=== PATIENT | female | born 1975 | race Two or more races ===

== ENCOUNTER 2025-06-09 20:41 | Inpatient (IN) | payer MEDICAID, OTHER ==
[~2025-06-09] VITALS: Ht 168.9 cm; Wt 94.1 kg
[2025-06-09] MEDS: VANCOMYCIN 1GM/250ML KIT 250 ML IV ONE (00:30)
--- NOTE | 2025-06-09 20:58 | ED.PDOC ---
History of Present Illness HPI Comments 50 y/o F is BIBA for c/c of unhealing left buttock wound, with associated discharge and surrounding tissue discoloration and generalized weakness. 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 Patient states on feeling weak, today, and is unable to walk as she usually does. Denial of any further acute symptoms. Chief Complaint: Wound Check Time Seen by MD: 20:50 Reviewed Notes: Nurses Notes, Medications, Allergies Allergies: Coded Allergies: NO KNOWN ALLERGIES (Unverified , 06/09/25) Information Source: Patient Mode of Arrival: Ambulatory Severity: Moderate Timing: Months Duration: Since onset Prehospital treatment: 12 Lead EKG, Accucheck, [employer] Past Medical History Past Medical History (Other): Chrohn's disease Surgical History (Other): Ileostomy All Other Systems: Reviewed and Negative (As per HPI) Physical Exam General Appearance: No Apparent Distress, Normal HEENT: Normal ENT Inspection, Pharynx Normal, TMs Normal Neck: Full Range of Motion, Non-Tender, Normal, Normal Inspection Respiratory: Chest Non-Tender, Lungs Clear, No Accessory Muscle Use, No Respiratory Distress, Normal Breath Sounds Cardiovascular: No Edema, No JVD, No Murmur, No Gallop, Normal Peripheral Pulses, Regular Rate/Rhythm Breast Exam: Deferred Gastrointestinal: LLQ (tenderness ), No Organomegaly, No Pulsatile Mass, Normal Bowel Sounds, RLQ (tenderness ), Soft, Tenderness (bilateral lower quadrants ) Genitalia: Deferred Pelvic: Deferred Rectal: Deferred Extremities: No calf tenderness, Normal capillary refill, Normal inspection, Normal range of motion, Non-tender, No pedal edema Musculoskeletal : Apperance: Normal Neurologic: Alert, brand mgr II-XII nml as Tested, No Motor Deficits, Normal Affect, Normal Mood, No Sensory Deficits Cerebellar Function: Normal Reflexes: Normal Skin: Dry, Normal Color, Warm, Other (stage 3 decubitus ulcer on the left butt ock with purulent drainage) Lymphatic: No Adenopathy Was a procedure done? Was a procedure done?: No Differential Dx Considerations may include: decubitus ulcer, nonhealing wound, dermatitis, cellulitis, sepsis, UTI, viral syndrome, among others X-Ray, Labs, Meds, VS Vital Signs Date Time Temp Pulse Resp B/P (MAP) Pulse Ox O2 Delivery O2 Flow Rate FiO2 06/10/25 00:00 86 21 98/59 (72) 100 06/09/25 23:30 98.4 91 14 101/58 (72) 100 98.4 06/09/25 23:30 91 14 100 Room Air* 0 21 06/09/25 20:45 98.3 95 16 105/48 100 98.3 06/09/25 20:41 93 Lab Test 06/09/25 22:55 06/09/25 21:17 Range/Units Lactic Acid Level 2.7 *H 3.4 *H 0.4-2.0 mmol/L White Blood Count 13.8 H 4.4-10.8 10^3/uL Red Blood Count 2.54 L 4.0-5.20 10^6/uL Hemoglobin 9.2 L 12.2-16.2 g/dL Hematocrit 27.9 L 36.0-46.0 % Mean Corpuscular Volume 109.8 H 80.0-100.0 fL Mean Corpuscular Hemoglobin 36.0 H 28.0-32.0 pg Mean Corpuscular Hemoglobin Concent 32.8 32.0-36.0 g/dL Red Cell Distribution Width 21.0 H 11.8-14.3 % Platelet Count 459 H 140-450 10^3/uL Mean Platelet Volume 6.5 L 6.9-10.8 fL Neutrophils (%) (Auto) 74.9 37.0-80.0 % Lymphocytes (%) (Auto) 18.6 10.0-50.0 % Monocytes (%) (Auto) 6.1 0.0-12.0 % Eosinophils (%) (Auto) 0.2 0.0-7.0 % Basophils (%) (Auto) 0.2 0.0-2.0 % Neutrophils # (Auto) 10.3 H 1.6-8.6 10 ^3/uL Lymphocytes # (Auto) 2.6 0.4-5.4 10 ^3/uL Monocytes # (Auto) 0.8 0-1.3 10 ^3/uL Eosinophils # (Auto) 0 0-0.8 10 ^3/uL Basophils # (Auto) 0 0-0.2 10 ^3/uL Nucleated Red Blood Cells 0.2 % Prothrombin Time 16.5 H 9.3-11.8 sec Prothrombin Time INR 1.63 H 0.9-1.15 Activated Partial Thromboplast Time 39.5 H 24.5-34.5 SEC Sodium Level 138 136-145 mmol/L Potassium Level 3.8 3.5-5.1 mmol/L Chloride Level 108 H 98-107 mmol/L Carbon Dioxide Level 20 20-31 mmol/L Anion Gap 10 5-15 Blood Urea Nitrogen 5 L 9-23 mg/dL Creatinine 0.74 0.550-1.02 mg/dL Glomerular Filtration Rate Calc 97 >90 mL/min BUN/Creatinine Ratio 6.8 L 10.0-20.0 Serum Glucose 113 H 74-106 mg/dL Calcium Level 6.9 L 8.7-10.4 mg/dL Magnesium Level 2.0 1.6-2.6 mg/dL Total Bilirubin 0.3 0.2-1.0 mg/dL Aspartate Amino Transferase (AST) 29 13-40 U/L Alanine Aminotransferase (ALT) 19 7-40 U/L Alkaline Phosphatase 128 H 46-116 U/L Total Protein 4.6 L 5.7-8.2 g/dL Albumin 1.4 L 3.2-4.8 g/dL Lipase 15 12-53 U/L Current Medications Medications (Trade) Dose Ordered Sig/Ruben Route Start Time Stop Time Status Last Admin Sodium Chloride 1,000 ml @ 1,000 mls/hr Q1H ONCE IVB 06/09/25 21:00 06/09/25 21:59 DC 06/09/25 23:30 Piperacillin Sod/ Tazobactam Sod 100 ml @ 100 mls/hr ONCE ONCE IV 06/09/25 21:00 06/09/25 21:59 DC 06/09/25 23:30 Vancomycin HCl 250 ml @ 250 mls/hr ONCE ONCE IV 06/09/25 21:00 06/09/25 21:59 DC 06/09/25 00:30 Sodium Chloride 1,000 ml @ 1,000 mls/hr Q1H ONCE IV 06/10/25 00:45 06/10/25 01:44 DC 06/10/25 01:[address] [address] Ph: [phone] DIAGNOSTIC IMAGING Diagnostic Imaging Report : [id number] Signed PATIENT: SARBJIT FORBES ACCT: [id number] UNIT: [id number] : 1975 LOC: ER ROOM / BED: / AGE / SEX: 50 / F ADM STATUS: REG ER SERVICE 49 ORDERING PHYSICIAN: MATTHEW JACKSON MD PROCEDURE(s): ABPLIV - CT AB PEL WITH IV CON ONLY REASON: lower abd pain ORDER NUMBER(s): [id number], ACCESSION NUMBER(s): [id number] Exam: CT CT AB PEL WITH IV CON ONLY History: lower abd pain COMPARISON: None Technique: Multidetector spiral CT of the abdomen and pelvis was performed from lung bases to pubic symphysis. Intravenous contrast was administered during this examination. Portal venous imaging was obtained. Axial, coronal and sagittal multiplanar reformats were performed by the technologist on a separate workstation. Radiation Dose : 1. Abdomen/Pelvis: CTDIvol 10.79mGy, DLP 630.69 mGy*cm. Findings: Lung Bases: No acute or significant lung base finding. Normal heart size. No pleural or pericardial effusion. Liver: Severe hepatic steatosis. Gallbladder and biliary Tree: Unremarkable Spleen: Unremarkable Pancreas: The pancreas is normal in appearance without focal lesions or abnormal enhancement. Adrenal Glands: Unremarkable Kidneys: No hydronephrosis. Bladder: Unremarkable Bowel: The stomach is grossly normal in appearance. Small bowel and colon are normal in caliber and distribution. Normal appendix is visualized in the right lower quadrant without findings of appendicitis. Ascites: Absent Lymphadenopathy: No mesenteric, retroperitoneal or periportal lymphadenopathy. Abdominal wall and Mesentery: Several large ventral hernias. Perimbilical stoma. No obstruction. Generalized soft tissue edema. No abscess. Vasculature: The visualized abdominal aorta is normal in size and caliber. Abdominal and pelvic vessels demonstrate normal enhancement. Pelvic Organs: Unremarkable Musculoskeletal: No aggressive focal bony lesions, acute fractures or dislocation. Diffuse left gluteal skin thickening and soft tissue edema with multiple locules of gas within the peripheral dermal layer. IMPRESSION: Multiple locules of gas and severe skin thickening with mild subcutaneous inflammatory changes in the left gluteal region. No acute abdominal or pelvic finding. Generalized soft tissue edema Severe hepatic steatosis. Radiation optimization: All CT scans at this facility use at least one of these dose optimization techniques: automated exposure control mA and/or kV adj ustment per patient size (includes targeted exams where dose is matched to clinical indication) or iterative reconstruction. ATED BY: ROSS GREEN MD DICTATED DATE/TIME: 06/10/25148 SIGNED BY: ROSS GREEN MD SIGNED DATE/TIME: 06/10/25148 CC: Time of 1ST Reevaluation: 21:20 Reevaluation 1ST: Unchanged Patient Education/Counseling: Treatment, Other (need for admission ) Family Education/Counseling: No Family Present SEPSIS Sepsis Screen Physician Orders Electrocardigram (06/09/25 20:42) Urinalysis (06/09/25 20:50) Ct Ab Pel With Iv Con Only (06/09/25 20:50) Blood Culture (06/09/25 20:50) * Wound Consult (06/10/25 ) Wound Culture W/ Gs (06/10/25 00:00) Vital Signs Date Time Temp Pulse Resp B/P (MAP) Pulse Ox O2 Delivery O2 Flow Rate FiO2 06/10/25 00:00 86 21 98/59 (72) 100 06/09/25 23:30 98.4 91 14 101/58 (72) 100 98.4 06/09/25 23:30 91 14 100 Room Air* 0 21 06/09/25 20:45 98.3 95 16 105/48 100 98.3 06/09/25 20:41 93 Laboratory Tests Test 06/09/25 21:17 06/09/25 22:55 Lactic Acid Level 3.4 mmol/L (0.4-2.0) *H 2.7 mmol/L (0.4-2.0) *H White Blood Count 13.8 10^3/uL (4.4-10.8) H Medications Medications Dose Ordered Sig/Ruben Route Start Time Stop Time Status Last Admin Dose Admin Piperacillin Sod/ Tazobactam Sod 100 ml @ 100 mls/hr ONCE ONCE IV 06/09/25 21:00 06/09/25 21:59 DC 06/09/25 23:30 Sodium Chloride 1,000 ml @ 1,000 mls/hr Q1H ONCE IV 06/10/25 00:45 06/10/25 01:44 DC 06/10/25 01:00 Sodium Chloride 1,000 ml @ 1,000 mls/hr Q1H ONCE IVB 06/09/25 21:00 06/09/25 21:59 DC 06/09/25 23:30 Vancomycin HCl 250 ml @ 250 mls/hr ONCE ONCE IV 06/09/25 21:00 06/09/25 21:59 DC 06/09/25 00:30 Departure 1 Departure Time of Disposition: 02:12 Impression: Primary Impression: Decubitus ulcer Additional Impression: Cellulitis of left buttock Disposition: ADMITTED INPATIENT Condition: Guarded Discharged With: Self Comments 50-year-old female states she has been bed-bound for the last few months and now has developed a decubitus ulcer on her left buttock and it has become deep and cellulitic. On lab review white blood cell count elevated at 13.8. Anemia with H&H of 9 and 28. Initial lactate is elevated at 3.4. It improved to 2.7 on re- evaluation. CT of the abdomen and pelvis shows inflammation of the soft tissue of the left buttock. Patient was given IV fluids and IV Zosyn and vancomycin antibiotics. Patient will need to be admitted for supportive care and further workup. Critical Care Note Critical Care Time?: No Stability Stability form required: No Heart Score Heart Score: Heart Score Response (Comments) Value History N/A 0 EKG N/A 0 Age N/A 0 Risk Factors N/A 0 Troponin N/A 0 Total 0 I personally scribed for MATTHEW JACKSON MD ([email or web address]) on 06/09/25 at 20:58. Electronically submitted by Earl Cui [email or web address]). I personally scribed for MATTHEW JACKSON MD ([email or web address]) on 06/10/25 at 02:11. El ectronically submitted by Earl Cui [email or web address]). MATTHEW JACKSON MD Jun 09, 2025 20:58
[2025-06-09 21:42] LABS: Hematocrit 27.9 % (36.0-46.0); Hemoglobin 9.2 g/dL (12.2-16.2); Mean Corpuscular Hemoglobin 36.0 pg (28.0-32.0); Mean Corpuscular Volume 109.8 fL (80.0-100.0); Nucleated Red Blood Cells % 0.2 %
[2025-06-09 22:02] LABS: INR 1.63 (0.9-1.15); Partial Thromboplastin Time 39.5 SEC (24.5-34.5); Prothrombin Time 16.5 sec (9.3-11.8)
[2025-06-09] MEDS: IOHEXOL 300 MG/ML 100ML BOTTLE IJ ONE (22:07)
[2025-06-09 22:23] LABS: Lactic Acid w/Reflex 3.4 mmol/L (0.4-2.0)
[2025-06-09 22:42] LABS: Alanine Aminotransferase 19 U/L (7-40); Albumin 1.4 g/dL (3.2-4.8); Alkaline Phosphatase 128 U/L (46-116); Anion Gap 10 (5-15); BUN/Creatinine Ratio 6.8 (10.0-20.0); Bilirubin, Total 0.3 mg/dL (0.2-1.0); Blood Urea Nitrogen 5 mg/dL (9-23); Calcium 6.9 mg/dL (8.7-10.4); Carbon Dioxide 20 mmol/L (20-31); Chloride 108 mmol/L (98-107); Glucose 113 mg/dL (74-106); Lipase 15 U/L (12-53); Magnesium 2.0 mg/dL (1.6-2.6); Potassium 3.8 mmol/L (3.5-5.1); Sodium 138 mmol/L (136-145); Total Protein 4.6 g/dL (5.7-8.2)
[2025-06-09 23:30] VITALS: PULSE 91; RESP 14; O2SAT 100
[2025-06-09] MEDS: SODIUM CHLORIDE 0.9% 1,000 ML IVB ONE (23:30)
[2025-06-09] MEDS: PIPERACILLIN-TAZOB 3.375GM 100 ML IV ONE (23:30)
[2025-06-10] VITALS (7 sets, daily range): BP systolic 86–98; BP diastolic 40–65; PULSE 77–91; RESP 16–20; TEMP 97.1–97.9; O2SAT 95–99
[2025-06-10] MEDS: SODIUM CHLORIDE 0.9% 1,000 ML IV ONE ×2 (01:00→02:30)
--- NOTE | 2025-06-10 01:52 | DVH ---
Exam: CT CT AB PEL WITH IV CON ONLY History: lower abd pain COMPARISON: None Technique: Multidetector spiral CT of the abdomen and pelvis was performed from lung bases to pubic s ymphysis. Intravenous contrast was administered during this examination. Portal venous imaging was o btained. Axial, coronal and sagittal multiplanar reformats were performed by the technologist on a [employer] workstation. Radiation Dose : 1. Abdomen/Pelvis: CTDIvol 10.79mGy, DLP 630.69 mGy*cm. Findings: Lung Bases: No acute or significant lung base finding. Normal heart size. No pleural or pericardial effusion. Liver: Severe hepatic steatosis. Gallbladder and biliary Tree: Unremarkable Spleen: Unremarkable Pancreas: The pancreas is normal in appearance without focal lesions or abnormal enhancement. Adrenal Glands: Unremarkable Kidneys: No hydronephrosis. Bladder: Unremarkable Bowel: The stomach is grossly normal in appearance. Small bowel and colon are normal in caliber and d istribution. Normal appendix is visualized in the right lower quadrant without findings of appendicit is. Ascites: Absent Lymphadenopathy: No mesenteric, retroperitoneal or periportal lymphadenopathy. Abdominal wall and Mesentery: Several large ventral hernias. Perimbilical stoma. No obstruction. Gene ralized soft tissue edema. No abscess. Vasculature: The visualized abdominal aorta is normal in size and caliber. Abdominal and pelvic vess els demonstrate normal enhancement. Pelvic Organs: Unremarkable Musculoskeletal: No aggressive focal bony lesions, acute fractures or dislocation. Diffuse left gluteal skin thickening and soft tissue edema with multiple locules of gas within the pe ripheral dermal layer. IMPRESSION: Multiple locules of gas and severe skin thickening with mild subcutaneous inflammatory changes in the left gluteal region. No acute abdominal or pelvic finding. Generalized soft tissue edema Severe hepatic steatosis. Radiation optimization: All CT scans at this facility use at least one of these dose optimization baldemar hniques: automated exposure control mA and/or kV adjustment per patient size (includes targeted exam s where dose is matched to clinical indication) or iterative reconstruction.
[2025-06-10] MEDS ORDERED: VANCOMYCIN PER PHARMACY 0 MG IV SCH (02:30)
[2025-06-10] MEDS: SODIUM CHLORIDE 0.9% 1,000 ML IV SCH (02:30)
[2025-06-10] MEDS ORDERED: MORPHINE SULFATE INJ 2 MG/ml SYRG IV PRN (02:30)
[2025-06-10 04:54] LABS: Hematocrit 24.6 % (36.0-46.0); Nucleated Red Blood Cells % 0.1 %
[2025-06-10 04:56] LABS: Hemoglobin 8.1 g/dL (12.2-16.2); Mean Corpuscular Hemoglobin 36.3 pg (28.0-32.0); Mean Corpuscular Volume 110.9 fL (80.0-100.0)
[2025-06-10 05:02] LABS: Alanine Aminotransferase 18 U/L (7-40); Alkaline Phosphatase 107 U/L (46-116); Anion Gap 10 (5-15); Carbon Dioxide 20 mmol/L (20-31); Glucose 103 mg/dL (74-106); Magnesium 1.7 mg/dL (1.6-2.6); Sodium 139 mmol/L (136-145)
[2025-06-10 05:03] LABS: BUN/Creatinine Ratio 7.6 (10.0-20.0); Blood Urea Nitrogen < 5 mg/dL (9-23); Calcium 6.4 mg/dL (8.7-10.4); Chloride 109 mmol/L (98-107); Potassium 3.2 mmol/L (3.5-5.1); Total Protein 4.1 g/dL (5.7-8.2)
[2025-06-10 05:04] LABS: Albumin 1.3 g/dL (3.2-4.8); Bilirubin, Total 0.4 mg/dL (0.2-1.0)
[2025-06-10 05:15] LABS: Triglycerides 118 mg/dL (< 150)
[2025-06-10 05:17] LABS: Cholesterol < 50.0 mg/dL (< 200)
[2025-06-10 05:20] LABS: HDL Cholesterol < 5 mg/dL (40-59)
[2025-06-10] MEDS: PIPERACILLIN-TAZOB 3.375GM 100 ML IV SCH (05:46)
--- NOTE | 2025-06-10 06:32 | DVHHPRES ---
History of Present Illness Resident Creating Document: CALEB FOFANA History of Present Illness Cara Bertrand is a 50-year-old female patient who presents to ED due to progressive generalized weakness, diffuse abdominal pain, and worsening lower back wound which has been occurring for the previous month before her admission patient also reports decreased food intake with an unintentional weight loss of 120 lb since December 2024. She also complains of abdominal mass pain next to her colostomy bag. Patient has history of Crohn's disease and ulcerative colitis complicated with enterocutaneous fistulas. Patient denies any other associated symptoms, including fever, chills, nausea, vomiting and increased output of colostomy bag. Past medical history: Crohn's disease/ulcerative colitis complicated with enterocutaneous fistulas status post multiple surgeries (colectomy, fistulectomy, wound debridement and finally colostomy bag), per patient she has not had any follow up for the past seven years and is off all Crohn's disease and ulcerative colitis medication (previously she was on Humira and multiple other biological treatments), umbilical hernia, nonhealing lower back wound. Benign ovarian mass status post unilateral salpingo-oophorectomy. Surgical history: 20 years ago presented colectomy, fistulectomy, wound debr idement and colostomy bag. Unilateral salpingo oophorectomy Family history: Mother had breast cancer and grandmother had Crohn's disease Social history: Lives in [place] with friends (next of kin is daughter). Current smoker (approximately 20 pack-year history of smoking). Denies alcohol and other drug abuse Allergies: Remicade, sweet potatoes Home medication: Denies (has not been on any medication for Crohn's disease for the past seven years) Patient seen and examined at bedside. Currently has no new complaints resides generalized weakness, foul-smelling lower back wound and abdominal pain. Past Medical History Per HPI Past Surgical History Per HPI Family History Per HPI Past Social History Per HPI Review of Systems Review of Systems Per HPI Allergies: Coded Allergies: NO KNOWN ALLERGIES (Unverified , 06/09/25) Medications Current Medications Medications Dose Ordered Sig/Ruben Route Start Time Stop Time Status Last Admin Dose Admin Morphine Sulfate 2 mg Q4HPRN PRN IV 06/10/25 02:30 Enoxaparin Sodium 40 mg DAILY SC 06/10/25 10:00 Piperacillin Sod/ Tazobactam Sod 100 ml @ 25 mls/hr Q8HR IV 06/10/25 06:00 06/10/25 05:46 25 MLS/HR Vancomycin HCl 0 ml @ 0 mls/hr UD IV 06/10/25 02:30 UNV Sodium Chloride 1,000 ml @ 100 mls/hr Q10H IV 06/10/25 02:30 Exam Vital Signs Vital Signs Date Time Temp Pulse Resp B/P (MAP) Pulse Ox O2 Delivery O2 Flow Rate FiO2 06/10/25 05:30 97.8 84 18 98/65 (76) 99 97.8 06/09/25 23:30 Room Air* 0 21 Exam Patient lying in bed, in no acute distress General: Lucid, unkempt, afebrile, mucosae are moist Cardiovascular: Normal S1 and S2. No murmurs, gallops or rubs Respiratory: Normal ventilation mechanics. Clear lung sounds on auscultation Abdomen: Soft, tenderness in pericolostomy region, rest of abdomen nontender, no organomegaly, normal bowel sounds, presents colostomy bag full of brown feces MSK/skin: Mobilizes 4 limbs. Skin is dry and warm, lower back wound predomin antly in intergluteal region with multiple fistula entry with foul-smelling greenish and brownish discharge. Neurological: Oriented in 3 spheres. No motor no sensitive deficits. Pupils are isocoric and reactive Labs/Xrays Labs Test 06/10/25 04:09 06/09/25 21:17 Range/Units White Blood Count 12.4 H 4.4-10.8 10^3/uL Red Blood Count 2.22 L 4.0-5.20 10^6/uL Hemoglobin 8.1 L 12.2-16.2 g/dL Hematocrit 24.6 #L 36.0-46.0 % Mean Corpuscular Volume 110.9 H 80.0-100.0 fL Mean Corpuscular Hemoglobin 36.3 H 28.0-32.0 pg Mean Corpuscular Hemoglobin Concent 32.8 32.0-36.0 g/dL Red Cell Distribution Width 20.6 H 11.8-14.3 % Platelet Count 358 140-450 10^3/uL Mean Platelet Volume 6.6 L 6.9-10.8 fL Neutrophils (%) (Auto) 76.2 37.0-80.0 % Lymphocytes (%) (Auto) 16.3 10.0-50.0 % Monocytes (%) (Auto) 7.0 0.0-12.0 % Eosinophils (%) (Auto) 0.3 0.0-7.0 % Basophils (%) (Auto) 0.2 0.0-2.0 % Neutrophils # (Auto) 9.4 H 1.6-8.6 10 ^3/uL Lymphocytes # (Auto) 2.0 0.4-5.4 10 ^3/uL Monocytes # (Auto) 0.9 0-1.3 10 ^3/uL Eosinophils # (Auto) 0 0-0.8 10 ^3/uL Basophils # (Auto) 0 0-0.2 10 ^3/uL Nucleated Red Blood Cells 0.1 % Sodium Level 139 136-145 mmol/L Potassium Level 3.2 L 3.5-5.1 mmol/L Chloride Level 109 H 98-107 mmol/L Carbon Dioxide Level 20 20-31 mmol/L Anion Gap 10 5-15 Blood Urea Nitrogen < 5 L 9-23 mg/dL Creatinine 0.66 0.550-1.02 mg/dL Glomerular Filtration Rate Calc 105 >90 mL/min BUN/Creatinine Ratio 7.6 L 10.0-20.0 Serum Glucose 103 74-106 mg/dL Lactic Acid Level 1.9 0.4-2.0 mmol/L Calcium Level 6.4 L 8.7-10.4 mg/dL Phosphorus Level 2.4 2.4-5.1 mg/dL Magnesium Level 1.7 1.6-2.6 mg/dL Total Bilirubin 0.4 0.2-1.0 mg/dL Aspartate Amino Transferase (AST) 23 13-40 U/L Alanine Aminotransferase (ALT) 18 7-40 U/L Alkaline Phosphatase 107 46-116 U/L B-Type Natriuretic Peptide 55.05 0-100 pg/mL Total Protein 4.1 L 5.7-8.2 g/dL Albumin 1.3 L 3.2-4.8 g/dL Triglycerides Level 118 < 150 mg/dL Cholesterol Level < 50.0 < 200 mg/dL LDL Cholesterol 19 < 100 mg/dL HDL Cholesterol < 5 L 40-59 mg/dL Prothrombin Time 16.5 H 9.3-11.8 sec Prothrombin Time INR 1.63 H 0.9-1.15 Activated Partial Thromboplast Time 39.5 H 24.5-34.5 SEC Hemoglobin A1c 4.0 <5.7 % A1C Lipase 15 12-53 U/L Vitamin B12 Level 1723 H 211-911 pg/mL Vitamin D 25-Hydroxy 40.1 30.0-100 ng/mL Thyroid Stimulating Hormone (TSH) 8.35 H 0.55-4.78 uIU/mL SEPSIS Sepsis Screen Date sepsis recognized/suspect: Jun 09, 2025 Time Sepsis recognized/suspect: 2352 Recent Procedure: No On Antibiotic Therapy: No Respiratory Rate >20: No Heart Rate >90: Yes Temp<36 C (96.8 F) or >38.3 C: No SBP <90 or MAP <65 mmHG: No New Acute Mental Status Change: No Is the patient on CPAP, BIPAP,: No Physician Orders * Wound Consult (06/10/25 ) Wound Culture W/ Gs (06/10/25 00:00) Admit (06/10/25 02:28) Code Status (06/10/25 02:28) Npo (Nothing By Mouth) Diet (06/10/25 Breakfast) Morphine Sulfate Injection (06/10/25 02:30) Enoxaparin Sodium (Lovenox) (06/10/25 10:00) Oxygen By Nasal Cannula (06/10/25 02:28) Stat Ekg For Chest Pain (06/10/25 02:28) Notify Md Of Changes From Base (06/10/25 02:28) Manufacturing Project Engineer For 24 Hours (06/10/25 02:28) Emergency Dysrhythmia Protocol (06/10/25 02:28) Rhythm Strips Once Every Shift (06/10/25 02:28) Piperacillin-Tazob 3.375gm (Zosyn 3.375g (06/10/25 06:00) Vancomycin Per Pharmacy (06/10/25 02:30) Sodium Chloride 0.9% (06/10/25 02:30) Sodium Chloride 0.9% (06/10/25 02:30) Urine Bacterial Culture (06/10/25 02:34) Drug Screen (06/10/25 02:34) * Training Mgr Consult (06/10/25 05:25) * Surgical Consult (06/10/25 05:40) Vital Signs Date Time Temp Pulse Resp B/P (MAP) Pulse Ox O2 Delivery O2 Flow Rate FiO2 06/10/25 05:30 97.8 84 18 98/65 (76) 99 97.8 06/10/25 03:00 91 14 102/52 (69) 100 06/10/25 02:00 83 11 93/56 (68) 100 06/10/25 00:00 86 21 98/59 (72) 100 06/09/25 23:30 98.4 91 14 101/58 (72) 100 98.4 06/09/25 23:30 91 14 100 Room Air* 0 21 Laboratory Tests Test 06/09/25 21:17 06/09/25 22:55 06/10/25 04:09 Lactic Acid Level 3.4 mmol/L (0.4-2.0) *H 2.7 mmol/L (0.4-2.0) *H 1.9 mmol/L (0.4-2.0) White Blood Count 13.8 10^3/uL (4.4-10.8) H 12.4 10^3/uL (4.4-10.8) H Medications Medications Dose Ordered Sig/Ruben Route Start Time Stop Time Status Last Admin Dose Admin Piperacillin Sod/ Tazobactam Sod 100 ml @ 25 mls/hr Q8HR IV 06/10/25 06:00 06/10/25 05:46 25 MLS/HR Piperacillin Sod/ Tazobactam Sod 100 ml @ 100 mls/hr ONCE ONCE IV 06/09/25 21:00 06/09/25 21:59 DC 06/09/25 23:30 100 MLS/HR Sodium Chloride 1,000 ml @ 100 mls/hr Q10H ONCE IV 06/10/25 02:30 06/10/25 12:29 06/10/25 02:30 100 MLS/HR Sodium Chloride 1,000 ml @ 1,000 mls/hr Q1H ONCE IV 06/10/25 00:45 06/10/25 01:44 DC 06/10/25 01:00 1,000 MLS/HR Sodium Chloride 1,000 ml @ 1,000 mls/hr Q1H ONCE IVB 06/09/25 21:00 06/09/25 21:59 DC 06/09/25 23:30 1,000 MLS/HR Vancomycin HCl 250 ml @ 250 mls/hr ONCE ONCE IV 06/09/25 21:00 06/09/25 21:59 DC 06/09/25 00:30 250 MLS/HR Assessment/Plan Assessment/Plan ASSESSMENT Sepsis secondary to nonhealing extensive gluteal wound Extensive gluteal wound secondary to enterocutaneous fistulas Cellulitis of gluteal region Multiple abscesses in gluteal region Questionable Crohn's disease/ulcerative colitis flare-up Hyperlacticacidemia Eventration with no incarceration Crohn's disease/ulcerative colitis status post colectomy Severe malnutrition (albumin 1.4) Severe hepatic steatosis Noncompliance Normocytic anemia PLAN Obtain pancultures (blood, urine, sputum and wound) Currently under empiric IV antibiotic (vancomycin and Zosyn) operations and maintenance specialist consulted Wound care on board Consulted GI specialist (evaluate need of IV steroids, and also requires follow up as outpatient) Patient is on DVT prophylaxis with enoxaparin Goals of care discussed with patient for over 18 minutes: Full code status Discussed plan with Dr. Kang, patient and nurses: Currently under empiric IV antibiotic, requires IV fluid resuscitation. Consulted surgical and GI specialist. Wound Care on board. Patient has poor prognosis Plan discussed with: Patient, Other (Nurses) My Orders Orders - CALEB FOFANA RESIDENT Procedure Category Date Status Time Admit ADMIT 06/10/25 Transmitted 02:28 Code Status CODE 06/10/25 Transmitted 02:28 Npo (Nothing By DIET 06/10/25 Transmitted Mouth) Diet Breakfast Morphine Sulfate PHA 06/10/25 In Process Injection 02:30 Enoxaparin Sodium PHA 06/10/25 In Process (Lovenox) 10:00 Oxygen By Nasal RT 06/10/25 Transmitted Cannula 02:28 Stat Ekg For Chest [facility]EE[facility]E 06/10/25 In Process Pain 02:28 Notify Of Changes [facility] 06/10/25 In Process From Base 02:28 Manufacturing Project Engineer For LEELEE 06/10/25 In Process 24 Hours 02:28 Emergency Dysrhythmia [facility] 06/10/25 In Process Protocol 02:28 Rhythm Strips Once LEELEE 06/10/25 In Process Every Shift 02:28 Piperacillin-Tazob PHA 06/10/25 In Process 3.375gm (Zosyn 3.375g 06:00 Vancomycin Per PHA 06/10/25 Pending Pharmacy 02:30 Sodium Chloride 0.9% PHA 06/10/25 In Process 02:30 Sodium Chloride 0.9% PHA 06/10/25 In Process 02:30 Urine Bacterial [place] 06/10/25 Logged Culture 02:34 Drug Screen LAB 06/10/25 Logged 02:34 * Training Mgr CONS 06/10/25 Transmitted Consult 05:25 * Surgical Consult CONS 06/10/25 Transmitted 05:40 Date of Service: Jun 10, 2025 Billing Provider: FANTASMA KANG MD Common Visit Codes: 35207-[id number] INP/OBS CARE (HIGH) Secondary Visit Codes: [id number] CARE PLAN 30 MINUTES CALEB FOFANA RESIDENT Jun 10, 2025 06:32
--- NOTE | 2025-06-10 09:12 | DVHINCON2 ---
Consultation - Surgical Date Seen: Jun 10, 2025 Referring Physician Reason for Consultation Left gluteal cellulitis/abscess History of Present Illness History of Present Illness Mrs. Bertrand is a 50-year-old female who presented to the ED due to generalized weakness and malaise. I was consulted due to gluteal area wound/abscess. Patient states that this has been going on for over 3 months and is getting worse. She has a history of Crohn's disease not under any treatment, with a past history of total proctocolectomy with end ileostomy. In the past she had fistulas due to Crohn's, perianal and multiple, requiring extensive debridement and flap. Past Medical/Surgical History Past Medical/Surgical History PMH Crohn's disease PSH total proctocolectomy with end ileostomy, extensive gluteal debridement with flap Allergies and medications Allergies: Coded Allergies: NO KNOWN ALLERGIES (Unverified , 06/09/25) Home Meds No Active Prescriptions or Reported Meds Review of systems Review of Systems: Deferred Examination Vital signs Vital Signs Date Time Temp Pulse Resp B/P (MAP) Pulse Ox O2 Delivery O2 Flow Rate FiO2 06/10/25 08:47 97.9 78 20 88/50 (63) 95 97.9 06/09/25 23:30 Room Air* 0 21 Medications Current Medications Medications (Trade) Dose Ordered Sig/Ruben Route PRN Reason Start Time Stop Time Status Last Admin Morphine Sulfate 2 mg Q4HPRN PRN IV SEVERE PAIN (7-10 PAIN SCALE) 06/10/25 02:30 Enoxaparin Sodium (Lovenox) 40 mg DAILY SC 06/10/25 10:00 Piperacillin Sod/ Tazobactam Sod 100 ml @ 25 mls/hr Q8HR IV 06/10/25 06:00 06/10/25 05:46 Vancomycin HCl 0 ml @ 0 mls/hr UD IV 06/10/25 02:30 Sodium Chloride 1,000 ml @ 100 mls/hr Q10H IV 06/10/25 02:30 Laboratory Labs Test 06/10/25 04:09 06/09/25 21:17 Range/Units White Blood Count 12.4 H 4.4-10.8 10^3/uL Red Blood Count 2.22 L 4.0-5.20 10^6/uL Hemoglobin 8.1 L 12.2-16.2 g/dL Hematocrit 24.6 #L 36.0-46.0 % Mean Corpuscular Volume 110.9 H 80.0-100.0 fL Mean Corpuscular Hemoglobin 36.3 H 28.0-32.0 pg Mean Corpuscular Hemoglobin Concent 32.8 32.0-36.0 g/dL Red Cell Distribution Width 20.6 H 11.8-14.3 % Platelet Count 358 140-450 10^3/uL Mean Platelet Volume 6.6 L 6.9-10.8 fL Neutrophils (%) (Auto) 76.2 37.0-80.0 % Lymphocytes (%) (Auto) 16.3 10.0-50.0 % Monocytes (%) (Auto) 7.0 0.0-12.0 % Eosinophils (%) (Auto) 0.3 0.0-7.0 % Basophils (%) (Auto) 0.2 0.0-2.0 % Neutrophils # (Auto) 9.4 H 1.6-8.6 10 ^3/uL Lymphocytes # (Auto) 2.0 0.4-5.4 10 ^3/uL Monocytes # (Auto) 0.9 0-1.3 10 ^3/uL Eosinophils # (Auto) 0 0-0.8 10 ^3/uL Basophils # (Auto) 0 0-0.2 10 ^3/uL Nucleated Red Blood Cells 0.1 % Sodium Level 139 136-145 mmol/L Potassium Level 3.2 L 3.5-5.1 mmol/L Chloride Level 109 H 98-107 mmol/L Carbon Dioxide Level 20 20-31 mmol/L Anion Gap 10 5-15 Blood Urea Nitrogen < 5 L 9-23 mg/dL Creatinine 0.66 0.550-1.02 mg/dL Glomerular Filtration Rate Calc 105 >90 mL/min BUN/Creatinine Ratio 7.6 L 10.0-20.0 Serum Glucose 103 74-106 mg/dL Lactic Acid Level 1.9 0.4-2.0 mmol/L Calcium Level 6.4 L 8.7-10.4 mg/dL Phosphorus Level 2.4 2.4-5.1 mg/dL Magnesium Level 1.7 1.6-2.6 mg/dL Total Bilirubin 0.4 0.2-1.0 mg/dL Aspartate Amino Transferase (AST) 23 13-40 U/L Alanine Aminotransferase (ALT) 18 7-40 U/L Alkaline Phosphatase 107 46-116 U/L B-Type Natriuretic Peptide 55.05 0-100 pg/mL Total Protein 4.1 L 5.7-8.2 g/dL Albumin 1.3 L 3.2-4.8 g/dL Triglycerides Level 118 < 150 mg/dL Cholesterol Level < 50.0 < 200 mg/dL LDL Cholesterol 19 < 100 mg/dL HDL Cholesterol < 5 L 40-59 mg/dL Prothrombin Time 16.5 H 9.3-11.8 sec Prothrombin Time INR 1.63 H 0.9-1.15 Activated Partial Thromboplast Time 39.5 H 24.5-34.5 SEC Hemoglobin A1c 4.0 <5.7 % A1C Lipase 15 12-53 U/L Vitamin B12 Level 1723 H 211-911 pg/mL Vitamin D 25-Hydroxy 40.1 30.0-100 ng/mL Thyroid Stimulating Hormone (TSH) 8.35 H 0.55-4.78 uIU/mL Examination: GENERAL:Normal, SKIN:Abnormal (Entire left gluteal area with erythema induration, multiple small apertures draining pus actively, tender, no crepitus. Right buttock with previous skin flap site erythema induration, and active pus tracked drainage, area is approximately 20 cm x 18 cm. Areas approximately 12 cm x 12 cm) Problem List/Assessment/Plan Problems: (1) Carbuncle and furuncle of buttock Assessment and Plan Mrs. Bertrand is a 50-year-old female with a active history of Crohn's disease, not manage and who presents with entire left buttock induration, cellulitis and active pus drainage. She has a same findings on the right buttock but smaller area. Given her history of Crohn's disease and the extensiveness of the involvement I recommend transfer to higher level care. 1. Recommend transferred to higher level care: We will need extensive debridement and plastics reconstruction 2. Continue with IV antibiotics 3. I will sign off please call with any questions or concerns Plan discussed with Plan discussed with: Patient Visit Coding Surgery Date of Service if different f: Jun 10, 2025 Billing Provider: RYLEE BOLTON MD Surgery Visit Codes: [id number] - INP CONSULT <110 MIN RYLEE BOLTON MD Jun 10, 2025 09:12
[2025-06-10] MEDS: ENOXAPARIN SOD 40 MG/0.4 ML SYRINGE SC SCH (10:00)
[2025-06-10] MEDS: VANCOMYCIN 1.5GM/250ML 250 ML IV SCH (11:43)
[2025-06-10 12:55] LABS: Urine Protein, UAD 1+ (Negative); Urine WBC Clumps PRESENT /hpf (None Seen)
[2025-06-10 14:41] LABS: Amphetamine Screen, Urine Neg (NEGATIVE); Barbiturate Scree,Urine Neg (NEGATIVE); Benzodiazephine Screen, Urine Neg (NEGATIVE); Cannabinoid Screen, Urine Neg (NEGATIVE); Cocaine Screen, Urine Neg (NEGATIVE); Opiate Scree,Urine Neg (NEGATIVE); Phencyclidine Screen, Urine Neg (NEGATIVE)
--- NOTE | 2025-06-10 14:51 | DVHINCON2 ---
GI Consult Consult Note GI consult note Date of Consultation: 06/10/2025 Chief Complaint: ?Crohn's flare-up Referring Physician:Dr Lyles H&P: 50-year-old female admitted with complains of generalized weakness. Also complaining of diffuse abdominal pain, and pain in her gluteal area due to wound. Patient has history of Crohn's symptoms started when she was 17 years ago, diagnosed when she was 22 years ago, patient is status post. Colectomy also had perianal flap surgery about 7-8 years ago. Patient was treated with Humira in the past for Crohn's and ulcerative colitis. But has stopped all these medications at this time Past Medical History: Crohn's disease/ulcerative colitis complicated with enterocutaneous fistulas status post multiple surgeries (colectomy, fistulectomy, wound debridement and finally colostomy bag), per patient she has not had any follow up for the past seven years and is off all Crohn's disease and ulcerative colitis medication (previously she was on Humira and multiple other biological treatments), umbilical hernia, nonhealing lower back wound. Benign ovarian mass status post unilateral salpingo-oophorectomy. Past Surgical History: 20 years ago presented colectomy, fistulectomy, wound debridement and colostomy bag. Unilateral salpingo oophorectomy Social History: NO smoking, drinking ETOH and use of illegal drugs. Family History: Mother and grandmother diagnosed with Crohn's disease Review of Systems: Constitutional: no fever, chill, weight loss HEENT: no eye pain, no hearing loss, no oral lesion, no scleral icterus Heart: no chest pain, no chest pressure Lung: no cough, no dyspnea with exertion Abdomen: see HPI : no pain with urination, normal appearing urine Musculoskeletal: Worsening lower back pain Physical exam: General: NAD, AAOX3 Chest: lung rajput clear to auscultation Heart: RRR, no murmur Abdomen: non-distended, no tenderness to palpation, +BS Labs: Labs Test 06/10/25 04:09 06/09/25 21:17 06/09/25 09:30 06/09/25 09:20 Range/Units White Blood Count 12.4 H 4.4-10.8 10^3/uL Red Blood Count 2.22 L 4.0-5.20 10^6/uL Hemoglobin 8.1 L 12.2-16.2 g/dL Hematocrit 24.6 #L 36.0-46.0 % Mean Corpuscular Volume 110.9 H 80.0-100.0 fL Mean Corpuscular Hemoglobin 36.3 H 28.0-32.0 pg Mean Corpuscular Hemoglobin Concent 32.8 32.0-36.0 g/dL Red Cell Distribution Width 20.6 H 11.8-14.3 % Platelet Count 358 140-450 10^3/uL Mean Platelet Volume 6.6 L 6.9-10.8 fL Neutrophils (%) (Auto) 76.2 37.0-80.0 % Lymphocytes (%) (Auto) 16.3 10.0-50.0 % Monocytes (%) (Auto) 7.0 0.0-12.0 % Eosinophils (%) (Auto) 0.3 0.0-7.0 % Basophils (%) (Auto) 0.2 0.0-2.0 % Neutrophils # (Auto) 9.4 H 1.6-8.6 10 ^3/uL Lymphocytes # (Auto) 2.0 0.4-5.4 10 ^3/uL Monocytes # (Auto) 0.9 0-1.3 10 ^3/uL Eosinophils # (Auto) 0 0-0.8 10 ^3/uL Basophils # (Auto) 0 0-0.2 10 ^3/uL Nucleated Red Blood Cells 0.1 % Sodium Level 139 136-145 mmol/L Potassium Level 3.2 L 3.5-5.1 mmol/L Chloride Level 109 H 98-107 mmol/L Carbon Dioxide Level 20 20-31 mmol/L Anion Gap 10 5-15 Blood Urea Nitrogen < 5 L 9-23 mg/dL Creatinine 0.66 0.550-1.02 mg/dL Glomerular Filtration Rate Calc 105 >90 mL/min BUN/Creatinine Ratio 7.6 L 10.0-20.0 Serum Glucose 103 74-106 mg/dL Lactic Acid Level 1.9 0.4-2.0 mmol/L Calcium Level 6.4 L 8.7-10.4 mg/dL Phosphorus Level 2.4 2.4-5.1 mg/dL Magnesium Level 1.7 1.6-2.6 mg/dL Total Bilirubin 0.4 0.2-1.0 mg/dL Aspartate Amino Transferase (AST) 23 13-40 U/L Alanine Aminotransferase (ALT) 18 7-40 U/L Alkaline Phosphatase 107 46-116 U/L B-Type Natriuretic Peptide 55.05 0-100 pg/mL Total Protein 4.1 L 5.7-8.2 g/dL Albumin 1.3 L 3.2-4.8 g/dL Triglycerides Level 118 < 150 mg/dL Cholesterol Level < 50.0 < 200 mg/dL LDL Cholesterol 19 < 100 mg/dL HDL Cholesterol < 5 L 40-59 mg/dL Prothrombin Time 16.5 H 9.3-11.8 sec Prothrombin Time INR 1.63 H 0.9-1.15 Activated Partial Thromboplast Time 39.5 H 24.5-34.5 SEC Hemoglobin A1c 4.0 <5.7 % A1C Lipase 15 12-53 U/L Vitamin B12 Level 1723 H 211-911 pg/mL Vitamin D 25-Hydroxy 40.1 30.0-100 ng/mL Thyroid Stimulating Hormone (TSH) 8.35 H 0.55-4.78 uIU/mL Urine Opiates Screen Neg NEGATIVE Urine Fentanyl Screen Neg NEGATIVE Urine Barbiturates Screen Neg NEGATIVE Urine Phencyclidine Screen Neg NEGATIVE Urine Amphetamines Screen Neg NEGATIVE Urine Benzodiazepines Screen Neg NEGATIVE Urine Cocaine Screen Neg NEGATIVE Urine Cannabinoids Screen Neg NEGATIVE Urine Color Dark yellow Yellow Urine Clarity Ex.turbid Clear Urine pH 6.0 5.0-9.0 Urine Specific [place] 1.050 H 1.001-1.035 Urine Protein 1+ H Negative Urine Ketones Negative Negative Urine Blood 3+ H Negative /uL Urine Nitrite Negative Negative Urine Bilirubin Negative Negative Urine Urobilinogen Normal Negative mg/dL Urine Leukocyte Esterase 3+ Negative /uL Urine RBC 91 0 - 4 /hpf Urine WBC Clumps Present None Seen /hpf Urine Microscopic WBC 1816 H 0-5 /HPF Urine Squamous Epithelial Cells None seen <5 /hpf Urine Bacteria None seen None Seen /hpf Urine Glucose Normal Normal mg/dL Imaging: CT abdomen pelvis IMPRESSION: Multiple locules of gas and severe skin thickening with mild subcutaneous inflammatory changes in the left gluteal region. No acute abdominal or pelvic finding. Generalized soft tissue edema Severe hepatic steatosis. Assessment: History of Crohn's and ulcerative colitis status post colectomy with perianal flap Sepsis secondary to nonhealing gluteal wound Extensive gluteal wound secondary to enterocutaneous fistulas Hepatic steatosis Plan: Discussed with Dr. Whitehead Patient is seen by surgery and recommended for higher level of care IV antibiotic No steroids recommended at this time due to sepsis Thank you for the consult Date of Service: Jun 10, 2025 Billing Provider: ELIDA MOORE Common Visit Codes: CONSULT ONLY Consultation Codes: [id number] CONSULT <35MIN, [id number] CONSULT <60MIN ELIDA MOORE Jun 10, 2025 14:51
--- NOTE | 2025-06-10 16:08 | DVH ---
Right lower extremity venous duplex Clinical History: R leg swelling and redness Comparison: None Findings: Duplex doppler evaluation of the deep venous system of the right lower extremity from the common femo ral vein to the popliteal vein including color doppler and spectral/pulsed waveform analysis was perf ormed. The common femoral vein demonstrates appropriate compressibility and waveform variability. There is compressibility/patency of the great saphenous vein at the proximal thigh. The femoral vein demonstrates appropriate compressibility and waveform variability. The deep femoral vein demonstrates appropriate compressibility and waveform variability. The popliteal vein demonstrates appropriate compressibility and waveform variability. There is normal compressibility at the tibioperoneal trunk. In the right popliteal fossa there is a 5.5 x 1.6 x 5.2 cm anechoic cystic structure. Impression: 1. No right femoropopliteal venous thrombosis. 2. Right popliteal fossa quiñones cyst measuring up to 5.5 cm.
--- NOTE | 2025-06-10 17:36 | DVHPN2 ---
Subjective Pain continues, seen at bedside today. Appears uncomfortable. Reviewed: H&P Changes from previous H/P or p: No Changes General: Per HPI Objective Vitals Vital Signs Date Time Temp Pulse Resp B/P (MAP) Pulse Ox O2 Delivery O2 Flow Rate FiO2 06/10/25 16:47 97.6 91 18 95/62 (73) 97 97.6 06/10/25 08:00 Room Air* 0 21 Intake/Output Intake and Output 06/10/25 07:00 Intake Total 1100 ml Balance 1100 ml Intake IV Total 1100 ml Exam GEN: Healthy appearing, well-developed, NAD. HEENT: NC/AT; MMM. CV: RRR, no m/r/g. LUNGS: CTAB, no w/r/c. ABD: Soft, NT/ND, NBS, no masses or organomegaly. EXT: Left buttock full of multiple areas of induration erythema, confluent, multiple areas of purulent drainage multiple tracts. The whole area is significantly tender extending into gluteal cleft. NEURO: Ambulating with no limitations. No focal deficits. Medications Current Medications Medications Dose Ordered Sig/Ruben Route Start Time Stop Time Status Last Admin Dose Admin Morphine Sulfate 2 mg Q4HPRN PRN IV 06/10/25 02:30 Enoxaparin Sodium 40 mg DAILY SC 06/10/25 10:00 Piperacillin Sod/ Tazobactam Sod 100 ml @ 25 mls/hr Q8HR IV 06/10/25 06:00 06/10/25 16:03 25 MLS/HR Vancomycin HCl 0 ml @ 0 mls/hr UD IV 06/10/25 02:30 Vancomycin HCl 250 ml @ 166.667 mls/hr Q12H IV 06/10/25 13:00 06/10/25 11:43 166.667 MLS/HR Nicotine 1 patch DAILY TD 06/11/25 10:00 Laboratory Results Laboratory Tests 06/10/25 04:09 Chemistry Test 06/09/25 21:17 06/10/25 04:09 Albumin 1.4 g/dL (3.2-4.8) L 1.3 g/dL (3.2-4.8) L Calcium Level 6.9 mg/dL (8.7-10.4) L 6.4 mg/dL (8.7-10.4) L Magnesium Level 2.0 mg/dL (1.6-2.6) 1.7 mg/dL (1.6-2.6) Total Protein 4.6 g/dL (5.7-8.2) L 4.1 g/dL (5.7-8.2) L Phosphorus Level 2.4 mg/dL (2.4-5.1) Coagulation Test 06/09/25 21:17 Prothrombin Time 16.5 sec (9.3-11.8) H Prothrombin Time INR 1.63 (0.9-1.15) H Activated Partial Thromboplast Time 39.5 SEC (24.5-34.5) H Lipid panel Test 06/09/25 21:17 06/10/25 04:09 Lipase 15 U/L (12-53) Cholesterol Level < 50.0 mg/dL (< 200) HDL Cholesterol < 5 mg/dL (40-59) L Triglycerides Level 118 mg/dL (< 150) Cardiac Markers Test 06/10/25 04:09 B-Type Natriuretic Peptide 55.05 pg/mL (0-100) LFT Test 06/09/25 21:17 06/10/25 04:09 Alanine Aminotransferase (ALT) 19 U/L (7-40) 18 U/L (7-40) Alkaline Phosphatase 128 U/L (46-116) H 107 U/L (46-116) Aspartate Amino Transferase (AST) 29 U/L (13-40) 23 U/L (13-40) Total Bilirubin 0.3 mg/dL (0.2-1.0) 0.4 mg/dL (0.2-1.0) HgA1c, TSH Test 06/09/25 21:17 Hemoglobin A1c 4.0 % A1C (<5.7) Thyroid Stimulating Hormone (TSH) 8.35 uIU/mL (0.55-4.78) H Urinalysis Test 06/09/25 09:20 Urine Color Dark yellow (Yellow) Urine Clarity Ex.turbid (Clear) Urine pH 6.0 (5.0-9.0) Urine Specific [place] 1.050 (1.001-1.035) Urine Protein 1+ (Negative) H Urine Ketones Negative (Negative) Urine Blood 3+ /uL (Negative) H Urine Nitrite Negative (Negative) Urine Bilirubin Negative (Negative) Urine Urobilinogen Normal mg/dL (Negative) Urine Leukocyte Esterase 3+ /uL (Negative) Urine RBC 91 /hpf (0 - 4) Urine WBC Clumps Present /hpf (None Seen) Urine Microscopic WBC 1816 /HPF (0-5) H Urine Squamous Epithelial Cells None seen /hpf (<5) Urine Bacteria None seen /hpf (None Seen) Urine Glucose Normal mg/dL (Normal) Labs and/or images reviewed: Labs reviewed by me, Image(s) reviewed by me Assessment/Plan Assessment/Plan 50-year-old female patient who presents to ED due to progressive generalized weakness, diffuse abdominal pain, and worsening lower back wound which has been occurring for the previous month before her admission patient also reports decreased food intake with an unintentional weight loss of 120 lb since December 2024. She also complains of abdominal mass pain next to her colostomy bag. Patient has history of Crohn's disease and ulcerative colitis complicated with enterocutaneous fistulas. Patient denies any other associated symptoms, including fever, chills, nausea, vomiting and increased output of colostomy bag. Past medical history: Crohn's disease/ulcerative colitis complicated with enterocutaneous fistulas status post multiple surgeries (colectomy, fistulectomy, wound debridement and finally colostomy bag), per patient she has not had any follow up for the past seven years and is off all Crohn's disease and ulcerative colitis medication (previously she was on Humira and multiple other biological treatments), umbilical hernia, nonhealing lower back wound. Benign ovarian mass status post unilateral salpingo-oophorectomy. Diagnosis: Sepsis secondary to nonhealing extensive gluteal wound Extensive gluteal wound secondary to enterocutaneous fistulas Cellulitis of gluteal region Multiple abscesses in gluteal region Questionable Crohn's disease/ulcerative colitis flare-up Hyperlacticacidemia Eventration with no incarceration Crohn's disease/ulcerative colitis status post colectomy Severe malnutrition (albumin 1.4) Severe hepatic steatosis Noncompliance Normocytic anemia Plan : Continue IV antibiotics Surgery concern for complicated procedure, we will require higher level of care for advanced surgery and including plastics no ivf nicotine patch continue diet start HLOC transfer request - social consulted tele full code Plan discussed with: Patient My Orders Orders - JOSE DAVID FERNANDEZ MD Procedure Category Date Status Time Cleanse Wound With LEELEE 06/10/25 In Process Mild Soap A 10:28 Mechanical Soft Diet DIET 06/10/25 Transmitted Dinner Insert Arango Catheter LEELEE 06/10/25 In Process 15:22 * Ccnp CONS 06/10/25 Transmitted Consult Rt Lower Dvt US 06/10/25 Resulted 15:22 Nicotine 7mg/24hr PHA 06/11/25 In Process (Nicoderm 7mg/24hr) 10:00 * Dietary Consult CONS 06/10/25 Transmitted 15:31 Nicotine 7mg/24hr PHA 06/10/25 Logged (Nicoderm 7mg/24hr) 17:30 Date of Service: Jun 10, 2025 Billing Provider: JOSE DAVID FERNANDEZ MD Common Visit Codes: [id number] INP/OBS CARE(HIGH) JOSE DAVID FERNANDEZ MD Jun 10, 2025 17:36
[2025-06-10] MEDS: NICOTINE 7MG/24HR TOPICAL PATCH TD ONE (18:04)
[2025-06-11] VITALS (8 sets, daily range): BP systolic 90–105; BP diastolic 42–64; PULSE 71–102; RESP 16–18; TEMP 97.3–98.3; O2SAT 95–99
[2025-06-11] MEDS: diphenhdrAMINE HCL 50 MG/1 ML VL IV ONE ×2 (03:35→15:45)
[2025-06-11 07:04] LABS: Hematocrit 24.8 % (36.0-46.0); Hemoglobin 7.9 g/dL (12.2-16.2); Mean Corpuscular Hemoglobin 35.2 pg (28.0-32.0); Mean Corpuscular Volume 110.1 fL (80.0-100.0); Nucleated Red Blood Cells % 0.2 %
[2025-06-11] MEDS: NICOTINE 7MG/24HR TOPICAL PATCH TD SCH (09:46)
--- NOTE | 2025-06-11 12:57 | DVHPN2 ---
Progress Note - Dictate Date Seen: Jun 11, 2025 Medical Necessity Reason Pt with a Central, PICC or Fol: No Subjective No new complaints No diarrhoea noted c/o itching requiring benadryl Leukocytosis and lactic acidosis improving vital signs Vital Sign Date Time Temp Pulse Resp B/P (MAP) Pulse Ox O2 Delivery O2 Flow Rate FiO2 06/11/25 07:55 Room Air* 0 21 06/11/25 04:58 97.3 73 18 90/55 (67) 99 97.3 Total Intake and Output 06/10/25 06/10/25 06/11/25 15:00 23:00 07:00 Intake Total 350 ml 400 ml 230 ml Output Total 400 ml Balance 350 ml 400 ml -170 ml medications Current Medications Medications Dose Ordered Sig/Ruben Route Start Time Stop Time Status Last Admin Dose Admin Morphine Sulfate 2 mg Q4HPRN PRN IV 06/10/25 02:30 Enoxaparin Sodium 40 mg DAILY SC 06/10/25 10:00 Piperacillin Sod/ Tazobactam Sod 100 ml @ 25 mls/hr Q8HR IV 06/10/25 06:00 06/11/25 06:00 25 MLS/HR Nicotine 1 patch DAILY TD 06/11/25 10:00 06/11/25 09:46 1 PATCH objective GENERAL:Normal, SKIN:Abnormal (Entire left gluteal area with erythema induration, multiple small apertures draining pus actively, tender, no crepitus. Right buttock with previous skin flap site erythema induration, and active pus tracked drainage, area is approximately 20 cm x 18 cm. Areas approximately 12 cm x 12 cm) laboratory and microbiology Laboratory Tests 06/11/25 06:43 06/10/25 04:09 Test 06/10/25 04:09 Range/Units Serum Glucose 103 74-106 mg/dL Problems(with codes): (1) Carbuncle and furuncle of buttock (2) Cellulitis of left buttock (3) Decubitus ulcer Prognosis Plan Patient is being treated with IV antibiotics for (Carbuncle and furuncle of buttock Given her history of Crohn's disease and the extensiveness of the involvement I recommend transfer to higher level care. Awaiting transfer to higher level of care, according to notes [facility] has denied acceptance Patient does not appear to have any active symptoms of Crohn's disease without any diarrhea or bleeding A Gastrografin small-bowel series can be considered to rule out any enterocutaneous fistulous Patient is currently on IV vancomycin and IV Zosyn, if antibiotics were adjusted consider adding Flagyl There does not appear to be need for any steroids or biologicals at this time I will follow up patient with you Plan discussed with: Other (Tasia Castanon) ANKUR COUCH MD Jun 11, 2025 12:57
--- NOTE | 2025-06-11 14:00 | DVHPN2 ---
Assessment/Plan Assessment/Plan progress note 50-year-old female patient who presents to ED due to progressive generalized weakness, diffuse abdominal pain, and worsening lower back wound which has been occurring for the previous month before her admission patient also reports decreased food intake with an unintentional weight loss of 120 lb since December 2024. She also complains of abdominal mass pain next to her colostomy bag. Patient has history of Crohn's disease and ulcerative colitis complicated with enterocutaneous fistulas. Patient denies any other associated symptoms, including fever, chills, nausea, vomiting and increased output of colostomy bag. Past medical history: Crohn's disease/ulcerative colitis complicated with enterocutaneous fistulas status post multiple surgeries (colectomy, fistulectomy, wound debridement and finally colostomy bag), per patient she has not had any follow up for the past seven years and is off all Crohn's disease and ulcerative colitis medication (previously she was on Humira and multiple other biological treatments), umbilical hernia, nonhealing lower back wound. Benign ovarian mass status post unilateral salpingo-oophorectomy. assessment and plan Sepsis secondary to nonhealing extensive gluteal wound Extensive gluteal wound secondary to enterocutaneous fistulas Cellulitis of gluteal region Multiple abscesses in gluteal region Questionable Crohn's disease/ulcerative colitis flare-up Hyperlacticacidemia Eventration with no incarceration Crohn's disease/ulcerative colitis status post colectomy Severe malnutrition (albumin 1.4) Severe hepatic steatosis Noncompliance Normocytic anemia Continue IV antibiotics Surgery concern for complicated procedure, we will require higher level of care for advanced surgery and including plastics no ivf nicotine patch continue diet HLOC for plastics re:flap diet reg dvt ppx hold full code Plan discussed with: Patient Date of Service: Jun 11, 2025 Billing Provider: LALO GALLEGO MD Common Visit Codes: [id number] INP/OBS CARE(HIGH) LALO GALLEGO MD Jun 11, 2025 14:00
[2025-06-11] MEDS: Juven Fruit Punch Powder PACKET 28.8gm PO SCH (18:13)
[2025-06-11] MEDS: Ensure HIGH Protein Chocolate 8oz Bottle PO SCH (18:13)
[2025-06-12] VITALS (8 sets, daily range): BP systolic 92–103; BP diastolic 51–65; PULSE 75–97; RESP 14–18; TEMP 98–98.8; O2SAT 97–100
[2025-06-12] MEDS: OMNIPAQUE 12mg/ml 500ml ORAL SOLUTION PO ONE (10:08)
[2025-06-12] MEDS: IOHEXOL 300 MG/ML 100ML BOTTLE IJ ONE (12:49)
--- NOTE | 2025-06-12 13:55 | DVHPN2 ---
Assessment/Plan Assessment/Plan progress note 50-year-old female patient who presents to ED due to progressive generalized weakness, diffuse abdominal pain, and worsening lower back wound which has been occurring for the previous month before her admission patient also reports decreased food intake with an unintentional weight loss of 120 lb since December 2024. She also complains of abdominal mass pain next to her colostomy bag. Patient has history of Crohn's disease and ulcerative colitis complicated with enterocutaneous fistulas. Patient denies any other associated symptoms, including fever, chills, nausea, vomiting and increased output of colostomy bag. Past medical history: Crohn's disease/ulcerative colitis complicated with enterocutaneous fistulas status post multiple surgeries (colectomy, fistulectomy, wound debridement and finally colostomy bag), per patient she has not had any follow up for the past seven years and is off all Crohn's disease and ulcerative colitis medication (previously she was on Humira and multiple other biological treatments), umbilical hernia, nonhealing lower back wound. Benign ovarian mass status post unilateral salpingo-oophorectomy. pending [facility] transfer, in the mean time covering with iv abx, wound care physical exam aox4 ctab s1 s2 rrr abdomen soft, colostomy lima in place no le edema multiple draining wound from bag assessment and plan Sepsis secondary to nonhealing extensive gluteal wound Extensive gluteal wound secondary to enterocutaneous fistulas Cellulitis of gluteal region Multiple abscesses in gluteal region Questionable Crohn's disease/ulcerative colitis flare-up Hyperlacticacidemia Eventration with no incarceration Crohn's disease/ulcerative colitis status post colectomy Severe malnutrition (albumin 1.4) Severe hepatic steatosis Noncompliance Normocytic anemia Continue IV antibiotics Surgery concern for complicated procedure, we will require higher level of care for advanced surgery and including plastics no ivf nicotine patch continue diet [facility] for plastics re:flap diet reg dvt ppx hold full code Plan discussed with: Patient Date of Service: Jun 12, 2025 Billing Provider: LALO GALLEGO MD Common Visit Codes: [id number] INP/OBS CARE(HIGH) LALO GALLEGO MD Jun 12, 2025 13:55
--- NOTE | 2025-06-12 15:09 | DVH ---
EXAM: CT CT ABD PELVIS W CON-ORAL IV HISTORY: assess fistula/abscesses, con into iv/po/colostomy TECHNIQUE: Volumetric multidetector CT images of the abdomen and pelvis were obtained after the admin istration of intravenous contrast. All CT scans at this facility use dose modulation, iterative recon struction, and/or weight based dosing when appropriate to reduce radiation dose to as low as reasonab ly achievable. COMPARISON: CT CT AB PEL WITH IV CON ONLY on DOS: 06/10/25 FINDINGS: [LOWER CHEST]: Small right-sided pleural effusion [LIVER]: Hepatic steatosis [GALLBLADDER AND BILIARY TREE]: Gallbladder is decompressed [SPLEEN]: Unremarkable. [PANCREAS]: Fatty atrophy, which may be seen in the setting of underlying metabolic derangement such as diabetes. [ADRENAL GLANDS]: Right adrenal gland nodule, oval-shaped, heterogeneous density, 2.9 x 2.1 cm [KIDNEYS]: No hydronephrosis. Right renal pelvic stone, 1.2 cm. [BLADDER]: Arango catheter in place [REPRODUCTIVE ORGANS]: Unremarkable. [BOWEL/MESENTERY]: Stomach is normal. Postsurgical changes related to left lower quadrant colostomy. Associated large peristomal fat containing hernia adjacent to the colostomy. Separate right fat and bowel containing ventral abdominal hernia, 4.2 cm neck, 7.6 cm sac. No significant surrounding infl ammatory stranding. In regards to the clinical question, insinuating abnormal phlegmon along the left -[id number] intergluteal cleft propagating towards the areas of resection to the pelvic floor . Appearance of prior complete resection of the rectum and distal sigmoid. [ASCITES]: Absent [LYMPHADENOPATHY]: No pathologically enlarged lymph nodes by CT size criteria [VASCULATURE]: No aneurysmal dilatation. [ABDOMINAL WALL]: Unremarkable. [MUSCULOSKELETAL]: No acute fracture or aggressive focal osseous lesion. Multifocal degenerative linton ge of the visualized spine. significant abnormal skin thickening with the associated fistulous tract. Scattered soft tissue thickening and soft tissue emphysema extending from the left intergluteal clef t /propagating through the perineum and extending into the presacral space (2-87). Deep extension of soft tissue gas into the left ischioanal fossa (2-93). IMPRESSION: 1. In regards to the clinical question, abnormal skin thickening with associated underlying suspected fistulous tract with scattered soft tissue emphysema extending from the left intergluteal cleft /pr opagating through the perineum and extending into the presacral space. 2. Deep extension of soft tissue gas into the left ischioanal fossa. 3. Indeterminate right adrenal gland nodule, oval-shaped, heterogeneous density, 2.9 x 2.1 cm. Recomm end further evaluation with CT or MRI adrenal protocol. 4. Right renal pelvic stone, 1.2 cm without hydronephrosis. 5. Small right-sided pleural effusion.
[2025-06-12] MEDS: ONDANSETRON HCL 4 MG/2 ML VIAL IV PRN (16:10)
[2025-06-12] MEDS: HYDROcodone-ACET 5/325MG TAB PO ONE (18:26)
[2025-06-13] VITALS (8 sets, daily range): BP systolic 90–137; BP diastolic 51–94; PULSE 74–92; RESP 15–17; TEMP 96.4–98.1; O2SAT 98–100
[2025-06-13] MEDS: KETOROLAC TROMETH 30 MG/ML 1ML VIAL IV ONE (14:00)
[2025-06-13] MEDS: HYDROcodone-ACET 5/325MG TAB PO PRN (16:00)
--- NOTE | 2025-06-13 16:14 | DVHPN2 ---
Assessment/Plan Assessment/Plan progress note 50-year-old female patient who presents to ED due to progressive generalized weakness, diffuse abdominal pain, and worsening lower back wound which has been occurring for the previous month before her admission patient also reports decreased food intake with an unintentional weight loss of 120 lb since December 2024. She also complains of abdominal mass pain next to her colostomy bag. Patient has history of Crohn's disease and ulcerative colitis complicated with enterocutaneous fistulas. Patient denies any other associated symptoms, including fever, chills, nausea, vomiting and increased output of colostomy bag. Past medical history: Crohn's disease/ulcerative colitis complicated with enterocutaneous fistulas status post multiple surgeries (colectomy, fistulectomy, wound debridement and finally colostomy bag), per patient she has not had any follow up for the past seven years and is off all Crohn's disease and ulcerative colitis medication (previously she was on Humira and multiple other biological treatments), umbilical hernia, nonhealing lower back wound. Benign ovarian mass status post unilateral salpingo-oophorectomy. pending [facility] transfer, in the mean time covering with iv abx, wound care. plan to transfer to [facility] [place]. pain mgmt physical exam aox4 ctab s1 s2 rrr abdomen soft, colostomy lima in place no le edema multiple draining wound from bag assessment and plan Sepsis secondary to nonhealing extensive gluteal wound Extensive gluteal wound secondary to enterocutaneous fistulas Cellulitis of gluteal region Multiple abscesses in gluteal region Questionable Crohn's disease/ulcerative colitis flare-up Hyperlacticacidemia Eventration with no incarceration Crohn's disease/ulcerative colitis status post colectomy Severe malnutrition (albumin 1.4) Severe hepatic steatosis Noncompliance Normocytic anemia Continue IV antibiotics Surgery concern for complicated procedure, we will require higher level of care for advanced surgery and including plastics no ivf nicotine patch continue diet [facility] for plastics re:flap diet reg dvt ppx hold full code Plan discussed with: Patient My Orders Orders - LALO GALLEGO MD Procedure Category Date Status Time Hydrocodone-Acet PHA 06/13/25 In Process 5/325mg Tab ([place] 15:30 Date of Service: Jun 13, 2025 Billing Provider: LALO GALLEGO MD Common Visit Codes: [id number] INP/OBS CARE(HIGH) LALO GALLEGO MD Jun 13, 2025 16:14
[2025-06-13] MEDS: CEFEPIME 2GM/50ML NS 50 ML IV SCH (21:24)
[2025-06-14] VITALS (8 sets, daily range): BP systolic 92–144; BP diastolic 54–80; PULSE 76–106; RESP 16–19; TEMP 97.8–98.3; O2SAT 96–100
[2025-06-14] MEDS: PANTOPRAZOLE 40 MG/10 ML VIAL INJ IV ONE (10:50)
[2025-06-14 11:01] LABS: Hematocrit 28.5 % (36.0-46.0); Hemoglobin 9.3 g/dL (12.2-16.2); Mean Corpuscular Hemoglobin 36.7 pg (28.0-32.0); Mean Corpuscular Volume 112.2 fL (80.0-100.0); Nucleated Red Blood Cells % 0.1 %
[2025-06-14 11:02] LABS: Potassium 4.0 mmol/L (3.5-5.1); Sodium 139 mmol/L (136-145)
[2025-06-14 11:03] LABS: Anion Gap 7 (5-15); Carbon Dioxide 23 mmol/L (20-31)
[2025-06-14 11:05] LABS: Calcium 7.0 mg/dL (8.7-10.4); Chloride 109 mmol/L (98-107)
[2025-06-14 11:09] LABS: BUN/Creatinine Ratio 7.8 (10.0-20.0); Blood Urea Nitrogen < 5 mg/dL (9-23); Glucose 105 mg/dL (74-106)
--- NOTE | 2025-06-14 12:46 | DVH ---
Date: 06/14/2025 11:11 AM Examination: XY KUB ABDOMEN SINGLE VIEW History: Pain Comparison: None TECHNIQUE: Frontal views of the abdomen was obtained. FINDINGS: Bowel gas pattern is unremarkable. The lung bases demonstrate right pleural effusion. Catheter projects over the pelvis. No acute osseous abnormality identified. IMPRESSION: Nonobstructive bowel gas pattern.
--- NOTE | 2025-06-14 13:02 | DVHPN2 ---
Progress Note Date Seen: Jun 14, 2025 Resident Creating Document: MASOOD MARTINES RESIDENT Medical Necessity Reason Pt with a Central, PICC or Fol: No Subjective Review of Systems Patient seen and examined at bedside Denies any vomiting, notes nausea Decreased appetite Minimal greenish brown output in the ileostomy, no bleeding Objective vital signs Vital Sign Date Time Temp Pulse Resp B/P (MAP) Pulse Ox O2 Delivery O2 Flow Rate FiO2 06/14/25 09:00 98.3 76 16 144/80 (101) 98 98.3 06/14/25 08:00 Room Air* 0 21 Total Intake and Output 06/13/25 06/13/25 06/14/25 15:00 23:00 07:00 Intake Total 180 ml 980 ml 450 ml Output Total 550 ml 250 ml Balance 180 ml 430 ml 200 ml medications Current Medications Medications Dose Ordered Sig/Ruben Route Start Time Stop Time Status Last Admin Dose Admin Morphine Sulfate 2 mg Q4HPRN PRN IV 06/10/25 02:30 Enoxaparin Sodium 40 mg DAILY SC 06/10/25 10:00 Nicotine 1 patch DAILY TD 06/11/25 10:00 06/14/25 09:47 1 PATCH Enteral Nutritional Formula 28.8 gm BIDWM PO 06/11/25 18:00 06/14/25 09:46 28.8 GM Enteral Nutritional Formula 240 ml TIDWM PO 06/11/25 18:00 06/14/25 09:46 240 ML Ondansetron HCl 4 mg Q6HPRN PRN IV 06/12/25 15:45 06/14/25 04:32 4 MG Acetaminophen/ Hydrocodone Bitart 1 tab Q6HPRN PRN PO 06/13/25 15:30 06/14/25 10:51 1 TAB Cefepime HCl 50 ml @ 12.5 mls/hr Q8HR IV 06/13/25 22:00 06/14/25 05:15 12.5 MLS/HR Pantoprazole Sodium 40 mg DAILY IV 06/15/25 10:00 Examination General Appearance: Cooperative. Well developed. Well nourished. NAD Pulmonary/Respiratory: Equal bilateral air entry Cardiovascular/Chest: Regular rate and rhythm. No murmurs. No JVD. Abdominal Exam: Normal bowel sounds. Soft. Ileostomy noted with minimal stomal hernia, brownish minimal output in the ileostomy bag noted., no visible veins, Nontender. No hepatospenomegaly. No masses Neuro/Mental Status: A&O x4. Coherent. Thoughts/Psych: Normal thought pattern. Appropriate mood and affect. Good judgement and insight Skin Exam: Left gluteal area with redness, multiple small sinuses draining active pus, tenderness to palpation. Right buttock with erythema and active pus drainage 20 x 18 cm in 12 x 12 cm. laboratory and microbiology Laboratory Tests 06/14/25 10:33 Test 06/14/25 10:33 Range/Units Serum Glucose 105 74-106 mg/dL Microbiology Date/Time Source Procedure Growth Status 06/10/25 03:00 Sacrum Gram Stain - Final Complete 06/10/25 03:00 Wound Culture - Final Klebsiella pneumoniae Chryseom Luteola/Flavim Oryzi Complete 06/09/25 21:20 Blood Blood Culture - Final Staph hominis subsp homins Complete 06/09/25 09:20 Voided Urine Urine Culture - Final Complete Labs and/or images reviewed: Labs reviewed by me, Image(s) reviewed by me Problem List/Assessment/Plan Problem List/Assessment/Plan Carbuncle and furuncle of buttocks Cellulitis of left buttock Decubitus ulcer Sepsis due to above Possible fistulous tracts draining purulent material History of ulcerative colitis Plan: - continue IV antibiotics - given patient's history of Crohn's disease and extensive involvement with prior failed biologic trial, recommend transfer to [facility] - awaiting transfer to higher level of care, tentatively [facility] - can consider Gastrografin small-bowel series to rule out enterocutaneous fistula - there does not appear to be an indication for steroids or biologics at this time Thank you so much for the opportunity to consult on your patient. GI team will follow the patient. In case of any questions or concerns please feel free to reach out. Plan discussed with Dr. Whitehead Plan discussed with: Patient, Other (RN) Dietary Evaluation Review Comments: PO supplementation Ensure High Protein TID Issac BID for wound healing TPN clinimix discuss with Dr. Caba regarding these orders Expected Outcomes/Goals: gradually healed wound, gradual wt loss MASOOD MARTINES RESIDENT Jun 14, 2025 13:02
--- NOTE | 2025-06-14 16:21 | DVHPN2 ---
Subjective Pain continues, seen at bedside today. Appears uncomfortable. Reviewed: H&P Changes from previous H/P or p: No Changes General: Per HPI Objective Vitals Vital Signs Date Time Temp Pulse Resp B/P (MAP) Pulse Ox O2 Delivery O2 Flow Rate FiO2 06/14/25 09:00 98.3 76 16 144/80 (101) 98 98.3 06/14/25 08:00 Room Air* 0 21 Intake/Output Intake and Output 06/14/25 07:00 Intake Total 1610 ml Output Total 800 ml Balance 810 ml Intake Oral 1460 ml IV Total 150 ml Output Urine Total 800 ml Exam GEN: Healthy appearing, well-developed, NAD. HEENT: NC/AT; MMM. CV: RRR, no m/r/g. LUNGS: CTAB, no w/r/c. ABD: Soft, NT/ND, NBS, no masses or organomegaly. EXT: Left buttock full of multiple areas of induration erythema, confluent, multiple areas of purulent drainage multiple tracts. The whole area is significantly tender extending into gluteal cleft. NEURO: Ambulating with no limitations. No focal deficits. Medications Current Medications Medications Dose Ordered Sig/Ruben Route Start Time Stop Time Status Last Admin Dose Admin Morphine Sulfate 2 mg Q4HPRN PRN IV 06/10/25 02:30 Enoxaparin Sodium 40 mg DAILY SC 06/10/25 10:00 Nicotine 1 patch DAILY TD 06/11/25 10:00 06/14/25 09:47 1 PATCH Enteral Nutritional Formula 28.8 gm BIDWM PO 06/11/25 18:00 06/14/25 09:46 28.8 GM Enteral Nutritional Formula 240 ml TIDWM PO 06/11/25 18:00 06/14/25 14:57 240 ML Ondansetron HCl 4 mg Q6HPRN PRN IV 06/12/25 15:45 06/14/25 04:32 4 MG Acetaminophen/ Hydrocodone Bitart 1 tab Q6HPRN PRN PO 06/13/25 15:30 06/14/25 10:51 1 TAB Cefepime HCl 50 ml @ 12.5 mls/hr Q8HR IV 06/13/25 22:00 06/14/25 14:57 12.5 MLS/HR Pantoprazole Sodium 40 mg DAILY IV 06/15/25 10:00 Laboratory Results Laboratory Tests 06/14/25 10:33 Chemistry Test 06/14/25 10:33 Calcium Level 7.0 mg/dL (8.7-10.4) L Urinalysis Test 06/09/25 09:20 Urine Color Dark yellow (Yellow) Urine Clarity Ex.turbid (Clear) Urine pH 6.0 (5.0-9.0) Urine Specific [place] 1.050 (1.001-1.035) Urine Protein 1+ (Negative) H Urine Ketones Negative (Negative) Urine Blood 3+ /uL (Negative) H Urine Nitrite Negative (Negative) Urine Bilirubin Negative (Negative) Urine Urobilinogen Normal mg/dL (Negative) Urine Leukocyte Esterase 3+ /uL (Negative) Urine RBC 91 /hpf (0 - 4) Urine WBC Clumps Present /hpf (None Seen) Urine Microscopic WBC 1816 /HPF (0-5) H Urine Squamous Epithelial Cells None seen /hpf (<5) Urine Bacteria None seen /hpf (None Seen) Urine Glucose Normal mg/dL (Normal) Microbiology Microbiology Date/Time Source Procedure Growth Status 06/10/25 03:00 Sacrum Gram Stain - Final Complete 06/10/25 03:00 Wound Culture - Final Klebsiella pneumoniae Chryseom Luteola/Flavim Oryzi Complete 06/09/25 21:20 Blood Blood Culture - Final Staph hominis subsp homins Complete 06/09/25 09:20 Voided Urine Urine Culture - Final Complete Labs and/or images reviewed: Labs reviewed by me, Image(s) reviewed by me Assessment/Plan Assessment/Plan 50-year-old female patient who presents to ED due to progressive generalized weakness, diffuse abdominal pain, and worsening lower back wound which has been occurring for the previous month before her admission patient also reports decreased food intake with an unintentional weight loss of 120 lb since December 2024. She also complains of abdominal mass pain next to her colostomy bag. Patient has history of Crohn's disease and ulcerative colitis complicated with enterocutaneous fistulas. Patient denies any other associated symptoms, including fever, chills, nausea, vomiting and increased output of colostomy bag. Past medical history: Crohn's disease/ulcerative colitis complicated with enterocutaneous fistulas status post multiple surgeries (colectomy, fistulectomy, wound debridement and finally colostomy bag), per patient she has not had any follow up for the past seven years and is off all Crohn's disease and ulcerative colitis medication (previously she was on Humira and multiple other biological treatments), umbilical hernia, nonhealing lower back wound. Benign ovarian mass status post unilateral salpingo-oophorectomy. 06/14: Reapplied today for transfer to plastics, [facility] decision pending. Surgery following. Continue IV antibiotics. Patient has epigastric pain we will start IV ppi, KUB upright as patient complains of worsening distention. Continue to evaluate. CT with contrast/oral/colostomy contrast, showing extensive fistula ascending from left gluteal region to the gluteal cleft, to the bones. Diagnosis: Sepsis secondary to nonhealing extensive gluteal wound Extensive gluteal wound secondary to enterocutaneous fistulas Cellulitis of gluteal region Multiple abscesses in gluteal region Questionable Crohn's disease/ulcerative colitis flare-up Hyperlacticacidemia Eventration with no incarceration Crohn's disease/ulcerative colitis status post colectomy Severe malnutrition (albumin 1.4) Severe hepatic steatosis Noncompliance Normocytic anemia Plan : Continue IV antibiotics Surgery concern for complicated procedure, we will require higher level of care for advanced surgery and including plastics no ivf nicotine patch continue diet start [facility] transfer request - social consulted tele full code Plan discussed with: Patient My Orders Orders - JOSE DAVID FERNANDEZ MD Procedure Category Date Status Time Pantoprazole PHA 06/15/25 In Process (Protonix) 10:00 Kub Abdomen Single XY 06/14/25 Resulted View 10:36 Date of Service: Jun 14, 2025 Billing Provider: JOSE DAVID FERNANDEZ MD Common Visit Codes: [id number] INP/OBS CARE(HIGH) JOSE DAVID FERNANDEZ MD Jun 14, 2025 16:21
[2025-06-15] VITALS (7 sets, daily range): BP systolic 95–110; BP diastolic 58–73; PULSE 70–99; RESP 17–20; TEMP 98.1–98.6; O2SAT 97–100
[2025-06-15] MEDS: PANTOPRAZOLE 40 MG/10 ML VIAL INJ IV SCH (08:57)
--- NOTE | 2025-06-15 10:47 | DVHPN2 ---
Subjective Pain continues, seen at bedside today. Appears uncomfortable. Reviewed: H&P Changes from previous H/P or p: No Changes General: Per HPI Objective Vitals Vital Signs Date Time Temp Pulse Resp B/P (MAP) Pulse Ox O2 Delivery O2 Flow Rate FiO2 06/15/25 08:36 98.1 70 19 110/69 (83) 99 98.1 06/15/25 08:00 Room Air* 0 21 Intake/Output Intake and Output 06/15/25 07:00 Intake Total 1120 ml Output Total 1200 ml Balance -80 ml Intake Oral 920 ml IV Total 200 ml Output Urine Total 1200 ml # Bowel Movements 1 Exam GEN: Healthy appearing, well-developed, NAD. HEENT: NC/AT; MMM. CV: RRR, no m/r/g. LUNGS: CTAB, no w/r/c. ABD: Soft, NT/ND, NBS, no masses or organomegaly. EXT: Left buttock full of multiple areas of induration erythema, confluent, multiple areas of purulent drainage multiple tracts. The whole area is significantly tender extending into gluteal cleft. NEURO: Ambulating with no limitations. No focal deficits. Medications Current Medications Medications Dose Ordered Sig/Ruben Route Start Time Stop Time Status Last Admin Dose Admin Morphine Sulfate 2 mg Q4HPRN PRN IV 06/10/25 02:30 Enoxaparin Sodium 40 mg DAILY SC 06/10/25 10:00 Nicotine 1 patch DAILY TD 06/11/25 10:00 06/15/25 08:57 1 PATCH Enteral Nutritional Formula 28.8 gm BIDWM PO 06/11/25 18:00 06/15/25 08:29 28.8 GM Enteral Nutritional Formula 240 ml TIDWM PO 06/11/25 18:00 06/15/25 08:29 240 ML Ondansetron HCl 4 mg Q6HPRN PRN IV 06/12/25 15:45 06/15/25 06:14 4 MG Acetaminophen/ Hydrocodone Bitart 1 tab Q6HPRN PRN PO 06/13/25 15:30 06/15/25 08:58 1 TAB Cefepime HCl 50 ml @ 12.5 mls/hr Q8HR IV 06/13/25 22:00 06/15/25 05:35 12.5 MLS/HR Pantoprazole Sodium 40 mg DAILY IV 06/15/25 10:00 06/15/25 08:57 40 MG Laboratory Results Laboratory Tests 06/14/25 10:33 Urinalysis Test 06/09/25 09:20 Urine Color Dark yellow (Yellow) Urine Clarity Ex.turbid (Clear) Urine pH 6.0 (5.0-9.0) Urine Specific [place] 1.050 (1.001-1.035) Urine Protein 1+ (Negative) H Urine Ketones Negative (Negative) Urine Blood 3+ /uL (Negative) H Urine Nitrite Negative (Negative) Urine Bilirubin Negative (Negative) Urine Urobilinogen Normal mg/dL (Negative) Urine Leukocyte Esterase 3+ /uL (Negative) Urine RBC 91 /hpf (0 - 4) Urine WBC Clumps Present /hpf (None Seen) Urine Microscopic WBC 1816 /HPF (0-5) H Urine Squamous Epithelial Cells None seen /hpf (<5) Urine Bacteria None seen /hpf (None Seen) Urine Glucose Normal mg/dL (Normal) Microbiology Microbiology Date/Time Source Procedure Growth Status 06/10/25 03:00 Sacrum Gram Stain - Final Complete 06/10/25 03:00 Wound Culture - Final Klebsiella pneumoniae Chryseom Luteola/Flavim Oryzi Complete 06/09/25 21:20 Blood Blood Culture - Final Staph hominis subsp homins Complete 06/09/25 09:20 Voided Urine Urine Culture - Final Complete Labs and/or images reviewed: Labs reviewed by me, Image(s) reviewed by me Assessment/Plan Assessment/Plan 50-year-old female patient who presents to ED due to progressive generalized weakness, diffuse abdominal pain, and worsening lower back wound which has been occurring for the previous month before her admission patient also reports decreased food intake with an unintentional weight loss of 120 lb since December 2024. She also complains of abdominal mass pain next to her colostomy bag. Patient has history of Crohn's disease and ulcerative colitis complicated with enterocutaneous fistulas. Patient denies any other associated symptoms, including fever, chills, nausea, vomiting and increased output of colostomy bag. Past medical history: Crohn's disease/ulcerative colitis complicated with enterocutaneous fistulas status post multiple surgeries (colectomy, fistulectomy, wound debridement and finally colostomy bag), per patient she has not had any follow up for the past seven years and is off all Crohn's disease and ulcerative colitis medication (previously she was on Humira and multiple other biological treatments), umbilical hernia, nonhealing lower back wound. Benign ovarian mass status post unilateral salpingo-oophorectomy. 06/14: Reapplied today for transfer to plastics, [facility] [place]. Surgery following. Continue IV antibiotics. Patient has epigastric pain we will start IV ppi, KUB upright as patient complains of worsening distention. Continue to evaluate. CT with contrast/oral/colostomy contrast, showing extensive fistula ascending from left gluteal region to the gluteal cleft, to the bones. 06/15: Patient is having diarrhea. We will switch antibiotics to ceftriaxone Flagyl. Change Zofran to Compazine. We will give 500 cc LR bolus for diarrhea., continue slow maintenance fluids 75 cc hour continuous maximum L,. Start Florastor b.i.d.. GI does not think this is Crohn's flare or need for any biologics or steroids this point. Continue [place] [facility] [place] advance care surgery facility which could include Plastic surgery. Diagnosis: Sepsis secondary to nonhealing extensive gluteal wound Extensive gluteal wound secondary to enterocutaneous fistulas Cellulitis of gluteal region Multiple abscesses in gluteal region Questionable Crohn's disease/ulcerative colitis flare-up Hyperlacticacidemia Eventration with no incarceration Crohn's disease/ulcerative colitis status post colectomy Severe malnutrition (albumin 1.4) Severe hepatic steatosis Noncompliance Normocytic anemia Plan : Continue IV antibiotics Surgery concern for complicated procedure, we will require higher level of care for advanced surgery and including plastics no ivf nicotine patch continue diet start [facility] transfer request - social consulted florastor antiemetics prn tele full code Plan discussed with: Patient Date of Service: Jun 15, 2025 Billing Provider: JOSE DAVID FERNANDEZ MD Common Visit Codes: [id number] INP/OBS CARE(HIGH) JOSE DAVID FERNANDEZ MD Jun 15, 2025 10:47
[2025-06-15] MEDS: FLORASTOR (S. BOULARDII) 250 MG CAP PO ONE (11:23)
[2025-06-15] MEDS: PROCHLORPERAZINE EDISYLATE 5 MG/ML 2ML VIAL IV PRN (11:23)
--- NOTE | 2025-06-15 14:04 | DVHPN2 ---
Progress Note Date Seen: Jun 15, 2025 Resident Creating Document: MASOOD MARTINES RESIDENT Medical Necessity Reason Pt with a Central, PICC or Fol: No Subjective Review of Systems Patient seen and examined at bedside Increasing ileostomy output noted, yellowish and watery in consistency Per patient she has attempted ileostomy bag 4 times in the past 8 hours Reports nausea Two episodes of vomiting , denies any blood Objective vital signs Vital Sign Date Time Temp Pulse Resp B/P (MAP) Pulse Ox O2 Delivery O2 Flow Rate FiO2 06/15/25 08:36 98.1 70 19 110/69 (83) 99 98.1 06/15/25 08:00 Room Air* 0 21 Total Intake and Output 06/14/25 06/14/25 06/15/25 15:00 23:00 07:00 Intake Total 50 ml 570 ml 500 ml Output Total 600 ml 600 ml Balance 50 ml -30 ml -100 ml medications Current Medications Medications Dose Ordered Sig/Ruben Route Start Time Stop Time Status Last Admin Dose Admin Morphine Sulfate 2 mg Q4HPRN PRN IV 06/10/25 02:30 Enoxaparin Sodium 40 mg DAILY SC 06/10/25 10:00 Nicotine 1 patch DAILY TD 06/11/25 10:00 06/15/25 08:57 1 PATCH Enteral Nutritional Formula 28.8 gm BIDWM PO 06/11/25 18:00 06/15/25 08:29 28.8 GM Enteral Nutritional Formula 240 ml TIDWM PO 06/11/25 18:00 06/15/25 12:04 240 ML Pantoprazole Sodium 40 mg DAILY IV 06/15/25 10:00 06/15/25 08:57 40 MG Prochlorperazine Edisylate 10 mg Q6HP PRN IV 06/15/25 11:00 06/15/25 11:23 10 MG Saccharomyces Boulardii 250 mg BID PO 06/15/25 22:00 Metronidazole 100 ml @ 100 mls/hr Q8HR IV 06/15/25 14:00 06/15/25 13:54 100 MLS/HR Ceftriaxone Sodium 50 ml @ 100 mls/hr DAILY@09 IV 06/16/25 09:00 Acetaminophen/ Hydrocodone Bitart 1 tab Q4HPRN PRN PO 06/15/25 13:30 Examination General Appearance: Cooperative. Well developed. Well nourished. NAD Pulmonary/Respiratory: Equal bilateral air entry Cardiovascular/Chest: Regular rate and rhythm. No murmurs. No JVD. Abdominal Exam: Normal bowel sounds. Soft. Ileostomy noted with minimal stomal hernia, brownish minimal output in the ileostomy bag noted., no visible veins, Nontender. No hepatospenomegaly. No masses Neuro/Mental Status: A&O x4. Coherent. Thoughts/Psych: Normal thought pattern. Appropriate mood and affect. Good judgement and insight Skin Exam: Left gluteal area with redness, multiple small sinuses draining active pus, tenderness to palpation. Right buttock with erythema and active pus drainage 20 x 18 cm in 12 x 12 cm. laboratory and microbiology Laboratory Tests 06/14/25 10:33 Test 06/14/25 10:33 Range/Units Serum Glucose 105 74-106 mg/dL Microbiology Date/Time Source Procedure Growth Status 06/10/25 03:00 Sacrum Gram Stain - Final Complete 06/10/25 03:00 Wound Culture - Final Klebsiella pneumoniae Chryseom Luteola/Flavim Oryzi Complete 06/09/25 21:20 Blood Blood Culture - Final Staph hominis subsp homins Complete 06/09/25 09:20 Voided Urine Urine Culture - Final Complete Labs and/or images reviewed: Labs reviewed by me, Image(s) reviewed by me Problem List/Assessment/Plan Problem List/Assessment/Plan Carbuncle and furuncle of buttocks Cellulitis of left buttock Decubitus ulcer S/p skin grafting of the gluteal area in the past Sepsis due to above Possible fistulous tracts draining purulent material History of ulcerative colitis and/or Crohn's disease: IBD-mixed type? Right adrenal gland nodule Plan: - continue IV antibiotics - given patient's history of Crohn's disease and extensive involvement with prior failed biologic trial, recommend transfer to [facility] - awaiting transfer to higher level of care, tentatively [facility] - can consider Gastrografin small-bowel series to rule out enterocutaneous fistula - there does not appear to be an indication for steroids or biologics at this time - patient has previously tried Humira, Remicade, Cimzia with initial improvement in later development of antibodies Thank you so much for the opportunity to consult on your patient. GI team will follow the patient. In case of any questions or concerns please feel free to reach out. Plan discussed with Dr. Whitehead Plan discussed with: Patient, Other (RN) My Orders My Orders Orders - MASOOD MARTINES Procedure Category Date Status Time Pt Request For Service PT 06/14/25 Logged 16:10 Dietary Evaluation Review Comments: PO supplementation Ensure High Protein TID Issac BID for wound healing TPN clinimix discuss with Dr. Caba regarding these orders Expected Outcomes/Goals: gradually healed wound, gradual wt loss MASOOD MARTINES RESIDENT Jun 15, 2025 14:04
[2025-06-15] MEDS: MORPHINE SULFATE 4 MG/ML SYR/VIAL IV PRN (16:03)
[2025-06-15] MEDS: HYDROcodone-ACET 5/325MG TAB PO PRN (17:51)
[2025-06-15] MEDS: FLORASTOR (S. BOULARDII) 250 MG CAP PO SCH (21:17)
[2025-06-16] VITALS (9 sets, daily range): BP systolic 95–106; BP diastolic 55–67; PULSE 78–100; RESP 17–19; TEMP 97.6–98.1; O2SAT 97–100
[2025-06-16 08:14] LABS: Nucleated Red Blood Cells % 0.0 %
[2025-06-16 08:18] LABS: Hematocrit 25.8 % (36.0-46.0); Hemoglobin 8.3 g/dL (12.2-16.2); Mean Corpuscular Hemoglobin 36.1 pg (28.0-32.0); Mean Corpuscular Volume 112.1 fL (80.0-100.0)
[2025-06-16 08:35] LABS: Alanine Aminotransferase 20 U/L (7-40); Alkaline Phosphatase 103 U/L (46-116); Anion Gap 7 (5-15); BUN/Creatinine Ratio 8.8 (10.0-20.0); Carbon Dioxide 21 mmol/L (20-31); Glucose 98 mg/dL (74-106); Potassium 3.9 mmol/L (3.5-5.1); Sodium 139 mmol/L (136-145)
[2025-06-16 08:36] LABS: Bilirubin, Total 0.4 mg/dL (0.2-1.0)
[2025-06-16 08:37] LABS: Albumin 1.3 g/dL (3.2-4.8); Blood Urea Nitrogen 5 mg/dL (9-23); Calcium 6.7 mg/dL (8.7-10.4); Chloride 111 mmol/L (98-107); Total Protein 4.1 g/dL (5.7-8.2)
--- NOTE | 2025-06-16 14:20 | DVHPN2 ---
Assessment/Plan Assessment/Plan progress note 50-year-old female patient who presents to ED due to progressive generalized weakness, diffuse abdominal pain, and worsening lower back wound which has been occurring for the previous month before her admission patient also reports decreased food intake with an unintentional weight loss of 120 lb since December 2024. She also complains of abdominal mass pain next to her colostomy bag. Patient has history of Crohn's disease and ulcerative colitis complicated with enterocutaneous fistulas. Patient denies any other associated symptoms, including fever, chills, nausea, vomiting and increased output of colostomy bag. Past medical history: Crohn's disease/ulcerative colitis complicated with enterocutaneous fistulas status post multiple surgeries (colectomy, fistulectomy, wound debridement and finally colostomy bag), per patient she has not had any follow up for the past seven years and is off all Crohn's disease and ulcerative colitis medication (previously she was on Humira and multiple other biological treatments), umbilical hernia, nonhealing lower back wound. Benign ovarian mass status post unilateral salpingo-oophorectomy. transfer denied by I, will reconsult surgery re debridement, iv abx planned for home. covered back with cefepime physical exam aox4 ctab s1 s2 rrr abdomen soft, colostomy lima in place no le edema multiple draining wound from bag assessment and plan Sepsis secondary to nonhealing extensive gluteal wound Extensive gluteal wound secondary to enterocutaneous fistulas Cellulitis of gluteal region Multiple abscesses in gluteal region Questionable Crohn's disease/ulcerative colitis flare-up Hyperlacticacidemia Eventration with no incarceration Crohn's disease/ulcerative colitis status post colectomy Severe malnutrition (albumin 1.4) Severe hepatic steatosis Noncompliance Normocytic anemia Continue IV antibiotics Surgery concern for complicated procedure, we will require higher level of care for advanced surgery and including plastics reconsult surg cefepime midline snif for iv abx no ivf nicotine patch continue diet diet reg dvt ppx hold full code Plan discussed with: Patient My Orders Orders - LALO GALLEGO MD Procedure Category Date Status Time Blood Culture [place] 06/16/25 Logged 10:42 Cefepime 2gm/50ml Ns PHA 06/16/25 In Process (Maxipime 2gm/50ml) 14:00 Date of Service: Jun 16, 2025 Billing Provider: LALO GALLEGO MD Common Visit Codes: [id number] INP/OBS CARE(HIGH) LALO GALLEGO MD Jun 16, 2025 14:20
[2025-06-16] MEDS: CEFEPIME 2GM/50ML NS 50 ML IV SCH (14:28)
--- NOTE | 2025-06-16 16:32 | DVHPN2 ---
Progress Note Date Seen: Jun 16, 2025 Resident Creating Document: MASOOD MARTIENS RESIDENT Medical Necessity Reason Pt with a Central, PICC or Fol: No Subjective Review of Systems Patient seen and examined at bedside Sad and tearful affect due to not being accepted by [facility] for surgical management Decreasing ileostomy output, per patient emptied ileostomy twice today (improved from yesterday) Notes some nausea, no vomiting Tolerating diet Objective vital signs Vital Sign Date Time Temp Pulse Resp B/P (MAP) Pulse Ox O2 Delivery O2 Flow Rate FiO2 06/16/25 16:22 97.9 92 18 106/65 (79) 98 97.9 06/15/25 20:00 Room Air* 0 21 Total Intake and Output 06/15/25 06/15/25 06/16/25 15:00 23:00 07:00 Intake Total 100 ml 560 ml 1100 ml Output Total 700 ml 450 ml Balance 100 ml -140 ml 650 ml medications Current Medications Medications Dose Ordered Sig/Ruben Route Start Time Stop Time Status Last Admin Dose Admin Enoxaparin Sodium 40 mg DAILY SC 06/10/25 10:00 Nicotine 1 patch DAILY TD 06/11/25 10:00 06/16/25 10:31 1 PATCH Enteral Nutritional Formula 28.8 gm BIDWM PO 06/11/25 18:00 06/15/25 17:35 28.8 GM Enteral Nutritional Formula 240 ml TIDWM PO 06/11/25 18:00 06/15/25 17:35 240 ML Pantoprazole Sodium 40 mg DAILY IV 06/15/25 10:00 06/16/25 09:14 40 MG Prochlorperazine Edisylate 10 mg Q6HP PRN IV 06/15/25 11:00 06/16/25 09:11 10 MG Saccharomyces Boulardii 250 mg BID PO 06/15/25 22:00 06/16/25 09:18 250 MG Acetaminophen/ Hydrocodone Bitart 1 tab Q4HPRN PRN PO 06/15/25 13:30 06/16/25 03:29 1 TAB Morphine Sulfate 1 mg Q4HPRN PRN IV 06/15/25 14:15 06/16/25 14:36 1 MG Cefepime HCl 50 ml @ 12.5 mls/hr Q8HR IV 06/16/25 14:00 06/16/25 14:28 12.5 MLS/HR Examination General Appearance: Cooperative. Well developed. Well nourished. NAD Pulmonary/Respiratory: Equal bilateral air entry Cardiovascular/Chest: Regular rate and rhythm. No murmurs. No JVD. Abdominal Exam: Normal bowel sounds. Soft. Ileostomy noted with minimal stomal hernia, brownish minimal output in the ileostomy bag noted., no visible veins, Nontender. No hepatospenomegaly. No masses Neuro/Mental Status: A&O x4. Coherent. Thoughts/Psych: Normal thought pattern. Appropriate mood and affect. Good judgement and insight Skin Exam: Left gluteal area with redness, multiple small sinuses draining active pus, tenderness to palpation. Right buttock with erythema and active pus drainage 20 x 18 cm in 12 x 12 cm. laboratory and microbiology Laboratory Tests 06/16/25 07:26 Test 06/16/25 07:26 Range/Units Serum Glucose 98 74-106 mg/dL Microbiology Date/Time Source Procedure Growth Status 06/10/25 03:00 Sacrum Gram Stain - Final Complete 06/10/25 03:00 Wound Culture - Final Klebsiella pneumoniae Chryseom Luteola/Flavim Oryzi Complete 06/09/25 21:20 Blood Blood Culture - Final Staph hominis subsp homins Complete 06/09/25 09:20 Voided Urine Urine Culture - Final Complete Labs and/or images reviewed: Labs reviewed by me, Image(s) reviewed by me Problem List/Assessment/Plan Problem List/Assessment/Plan Carbuncle and furuncle of buttocks Cellulitis of left buttock Decubitus ulcer S/p skin grafting of the gluteal area in the past Sepsis due to above Possible fistulous tracts draining purulent material History of ulcerative colitis and/or Crohn's disease: IBD-mixed type? Right adrenal gland nodule Plan: - continue IV antibiotics - given patient's history of Crohn's disease and extensive involvement with prior failed biologic trial, recommend transfer to [facility] - awaiting transfer to higher level of care for surgical management, tentatively [facility] - can consider Gastrografin small-bowel series to rule out enterocutaneous fistula - there does not appear to be an indication for steroids or biologics at this time - patient has previously tried Humira, Remicade, Cimzia with initial improvement in later development of antibodies Thank you so much for the opportunity to consult on your patient. GI team will follow the patient. In case of any questions or concerns please feel free to reach out. Plan discussed with Dr. Whitehead Plan discussed with: Patient, Other (RN) Dietary Evaluation Review Comments: PO supplementation Ensure High Protein TID Issac BID for wound healing TPN clinimix discuss with Dr. Caba regarding these orders Expected Outcomes/Goals: gradually healed wound, gradual wt loss MASOOD MARTINES RESIDENT Jun 16, 2025 16:32
[2025-06-17] VITALS (8 sets, daily range): BP systolic 96–110; BP diastolic 58–69; PULSE 98–129; RESP 14–19; TEMP 97.1–98.2; O2SAT 97–98
[2025-06-17 07:56] LABS: Hematocrit 27.8 % (36.0-46.0); Hemoglobin 9.1 g/dL (12.2-16.2); Mean Corpuscular Hemoglobin 37.1 pg (28.0-32.0); Mean Corpuscular Volume 113.3 fL (80.0-100.0); Nucleated Red Blood Cells % 0.0 %
[2025-06-17 08:05] LABS: Anion Gap 7 (5-15); Carbon Dioxide 21 mmol/L (20-31); Potassium 4.4 mmol/L (3.5-5.1); Sodium 138 mmol/L (136-145)
[2025-06-17 08:07] LABS: Calcium 7.1 mg/dL (8.7-10.4); Chloride 110 mmol/L (98-107)
[2025-06-17 08:11] LABS: Glucose 88 mg/dL (74-106)
[2025-06-17 08:12] LABS: BUN/Creatinine Ratio 8.5 (10.0-20.0); Blood Urea Nitrogen < 5 mg/dL (9-23)
--- NOTE | 2025-06-17 09:45 | DVHPN2 ---
Progress Note Date Seen: Jun 17, 2025 Resident Creating Document: MASOOD MARTINES RESIDENT Medical Necessity Reason Pt with a Central, PICC or Fol: No Subjective Review of Systems Patient seen and examined at bedside Reports feeling tired and nauseous Reports an okay appetite Decreasing ileostomy output, getting thicker, yellowish in color Emptied ileostomy once so far today Objective vital signs Vital Sign Date Time Temp Pulse Resp B/P (MAP) Pulse Ox O2 Delivery O2 Flow Rate FiO2 06/17/25 09:00 98.2 129 18 98/69 (79) 98 98.2 06/16/25 20:00 Room Air* 0 21 Total Intake and Output 06/16/25 06/16/25 06/17/25 15:00 23:00 07:00 Intake Total 50 ml 1090 ml 600 ml Output Total 500 ml 450 ml Balance 50 ml 590 ml 150 ml medications Current Medications Medications Dose Ordered Sig/Ruben Route Start Time Stop Time Status Last Admin Dose Admin Enoxaparin Sodium 40 mg DAILY SC 06/10/25 10:00 Nicotine 1 patch DAILY TD 06/11/25 10:00 06/17/25 09:25 1 PATCH Enteral Nutritional Formula 28.8 gm BIDWM PO 06/11/25 18:00 06/17/25 09:24 28.8 GM Enteral Nutritional Formula 240 ml TIDWM PO 06/11/25 18:00 06/15/25 17:35 240 ML Pantoprazole Sodium 40 mg DAILY IV 06/15/25 10:00 06/17/25 09:24 40 MG Prochlorperazine Edisylate 10 mg Q6HP PRN IV 06/15/25 11:00 06/17/25 07:53 10 MG Saccharomyces Boulardii 250 mg BID PO 06/15/25 22:00 06/17/25 09:25 250 MG Acetaminophen/ Hydrocodone Bitart 1 tab Q4HPRN PRN PO 06/15/25 13:30 06/17/25 07:59 1 TAB Morphine Sulfate 1 mg Q4HPRN PRN IV 06/15/25 14:15 06/17/25 06:12 1 MG Cefepime HCl 50 ml @ 12.5 mls/hr Q8HR IV 06/16/25 14:00 06/17/25 06:08 12.5 MLS/HR Examination General Appearance: Cooperative. Well developed. Well nourished. NAD Pulmonary/Respiratory: Equal bilateral air entry Cardiovascular/Chest: Regular rate and rhythm. No murmurs. No JVD. Abdominal Exam: Normal bowel sounds. Soft. Ileostomy noted with minimal stomal hernia, brownish minimal output in the ileostomy bag noted., no visible veins Neuro/Mental Status: A&O x4. Coherent. Thoughts/Psych: Normal thought pattern. Appropriate mood and affect. Good judgement and insight Skin Exam: Left gluteal area with redness, multiple small sinuses draining active pus, tenderness to palpation. Right buttock with erythema and active pus drainage 20 x 18 cm in 12 x 12 cm. laboratory and microbiology Laboratory Tests 06/17/25 06:55 Test 06/17/25 06:55 Range/Units Serum Glucose 88 74-106 mg/dL Microbiology Date/Time Source Procedure Growth Status 06/10/25 03:00 Sacrum Gram Stain - Final Complete 06/10/25 03:00 Wound Culture - Final Klebsiella pneumoniae Chryseom Luteola/Flavim Oryzi Complete 06/09/25 21:20 Blood Blood Culture - Final Staph hominis subsp homins Complete 06/09/25 09:20 Voided Urine Urine Culture - Final Complete Labs and/or images reviewed: Labs reviewed by me, Image(s) reviewed by me Problem List/Assessment/Plan Problem List/Assessment/Plan Carbuncle and furuncle of buttocks Cellulitis of left buttock Decubitus ulcer S/p skin grafting of the gluteal area in the past Sepsis due to above Possible fistulous tracts draining purulent material History of ulcerative colitis and/or Crohn's disease: IBD-mixed type? Right adrenal gland nodule Plan: - continue IV antibiotics - given patient's history of Crohn's disease and extensive involvement with prior failed biologic trial, recommend transfer to [facility] - awaiting transfer to higher level of care for surgical management, however I did not accept transfer: Repeat surgical evaluation - can consider Gastrografin small-bowel series to rule out enterocutaneous fistula - there does not appear to be an indication for steroids or biologics at this time - patient has previously tried Humira, Remicade, Cimzia with initial improvement in later development of antibodies Thank you so much for the opportunity to consult on your patient. GI team will follow the patient. In case of any questions or concerns please feel free to reach out. Plan discussed with Dr. Whitehead Plan discussed with: Patient, Other (RN) Dietary Evaluation Review Comments: PO supplementation Ensure High Protein TID Issac BID for wound healing TPN clinimix discuss with Dr. Caba regarding these orders Expected Outcomes/Goals: gradually healed wound, gradual wt loss MASOOD MARTINES RESIDENT Jun 17, 2025 09:45
--- NOTE | 2025-06-17 13:53 | DVHPN2 ---
Subjective Pain continues, seen at bedside today. Appears uncomfortable. Reviewed: H&P Changes from previous H/P or p: No Changes General: Per HPI Objective Vitals Vital Signs Date Time Temp Pulse Resp B/P (MAP) Pulse Ox O2 Delivery O2 Flow Rate FiO2 06/17/25 12:40 98.1 120 18 96/67 (77) 97 98.1 06/16/25 20:00 Room Air* 0 21 Intake/Output Intake and Output 06/17/25 07:00 Intake Total 1740 ml Output Total 950 ml Balance 790 ml Intake Oral 1640 ml IV Total 100 ml Output Urine Total 800 ml Stool Total 150 ml # Voids 1 Exam GEN: Healthy appearing, well-developed, NAD. HEENT: NC/AT; MMM. CV: RRR, no m/r/g. LUNGS: CTAB, no w/r/c. ABD: Soft, NT/ND, NBS, no masses or organomegaly. EXT: Left buttock full of multiple areas of induration erythema, confluent, multiple areas of purulent drainage multiple tracts. The whole area is significantly tender extending into gluteal cleft. NEURO: Ambulating with no limitations. No focal deficits. Medications Current Medications Medications Dose Ordered Sig/Ruben Route Start Time Stop Time Status Last Admin Dose Admin Enoxaparin Sodium 40 mg DAILY SC 06/10/25 10:00 Nicotine 1 patch DAILY TD 06/11/25 10:00 06/17/25 09:25 1 PATCH Enteral Nutritional Formula 28.8 gm BIDWM PO 06/11/25 18:00 06/17/25 09:24 28.8 GM Enteral Nutritional Formula 240 ml TIDWM PO 06/11/25 18:00 06/15/25 17:35 240 ML Pantoprazole Sodium 40 mg DAILY IV 06/15/25 10:00 06/17/25 09:24 40 MG Prochlorperazine Edisylate 10 mg Q6HP PRN IV 06/15/25 11:00 06/17/25 07:53 10 MG Saccharomyces Boulardii 250 mg BID PO 06/15/25 22:00 06/17/25 09:25 250 MG Acetaminophen/ Hydrocodone Bitart 1 tab Q4HPRN PRN PO 06/15/25 13:30 06/17/25 07:59 1 TAB Morphine Sulfate 1 mg Q4HPRN PRN IV 06/15/25 14:15 06/17/25 11:14 1 MG Cefepime HCl 50 ml @ 12.5 mls/hr Q8HR IV 06/16/25 14:00 06/17/25 06:08 12.5 MLS/HR Linezolid 600 mg BID PO 06/17/25 22:00 UNV Laboratory Results Laboratory Tests 06/17/25 06:55 Chemistry Test 06/17/25 06:55 Calcium Level 7.1 mg/dL (8.7-10.4) L Urinalysis Test 06/09/25 09:20 Urine Color Dark yellow (Yellow) Urine Clarity Ex.turbid (Clear) Urine pH 6.0 (5.0-9.0) Urine Specific [place] 1.050 (1.001-1.035) Urine Protein 1+ (Negative) H Urine Ketones Negative (Negative) Urine Blood 3+ /uL (Negative) H Urine Nitrite Negative (Negative) Urine Bilirubin Negative (Negative) Urine Urobilinogen Normal mg/dL (Negative) Urine Leukocyte Esterase 3+ /uL (Negative) Urine RBC 91 /hpf (0 - 4) Urine WBC Clumps Present /hpf (None Seen) Urine Microscopic WBC 1816 /HPF (0-5) H Urine Squamous Epithelial Cells None seen /hpf (<5) Urine Bacteria None seen /hpf (None Seen) Urine Glucose Normal mg/dL (Normal) Microbiology Microbiology Date/Time Source Procedure Growth Status 06/10/25 03:00 Sacrum Gram Stain - Final Complete 06/10/25 03:00 Wound Culture - Final Klebsiella pneumoniae Chryseom Luteola/Flavim Oryzi Complete 06/09/25 21:20 Blood Blood Culture - Final Staph hominis subsp homins Complete 06/09/25 09:20 Voided Urine Urine Culture - Final Complete Labs and/or images reviewed: Labs reviewed by me, Image(s) reviewed by me Assessment/Plan Assessment/Plan 50-year-old female patient who presents to ED due to progressive generalized weakness, diffuse abdominal pain, and worsening lower back wound which has been occurring for the previous month before her admission patient also reports decreased food intake with an unintentional weight loss of 120 lb since December 2024. She also complains of abdominal mass pain next to her colostomy bag. Patient has history of Crohn's disease and ulcerative colitis complicated with enterocutaneous fistulas. Patient denies any other associated symptoms, including fever, chills, nausea, vomiting and increased output of colostomy bag. Past medical history: Crohn's disease/ulcerative colitis complicated with enterocutaneous fistulas status post multiple surgeries (colectomy, fistulectomy, wound debridement and finally colostomy bag), per patient she has not had any follow up for the past seven years and is off all Crohn's disease and ulcerative colitis medication (previously she was on Humira and multiple other biological treatments), umbilical hernia, nonhealing lower back wound. Benign ovarian mass status post unilateral salpingo-oophorectomy. 06/14: Reapplied today for transfer to plastics, [facility] decision pending. Surgery following. Continue IV antibiotics. Patient has epigastric pain we will start IV ppi, KUB upright as patient complains of worsening distention. Continue to evaluate. CT with contrast/oral/colostomy contrast, showing extensive fistula ascending from left gluteal region to the gluteal cleft, to the bones. 06/15: Patient is having diarrhea. We will switch antibiotics to ceftriaxone Flagyl. Change Zofran to Compazine. We will give 500 cc LR bolus for diarrhea., continue slow maintenance fluids 75 cc hour continuous maximum L,. Start Florastor b.i.d.. GI does not think this is Crohn's flare or need for any biologics or steroids this point. Continue sending information to [facility] to transfer for advance care surgery facility which could include Plastic surgery. 06/17: Patient denied but i, yesterday plan to treat patient empirically with further IV antibiotics as patient is improving. However another surgical reconsult order placed. Pending surgery eval after 90s. Otherwise patient we will do 2 weeks cefepime at SNF + also get PT rehab and wound care. We will allow surgery to see patient today, otherwise likely discharge tomorrow to SNF. Diagnosis: Sepsis secondary to nonhealing extensive gluteal wound Extensive gluteal wound secondary to enterocutaneous fistulas Cellulitis of gluteal region Multiple abscesses in gluteal region Questionable Crohn's disease/ulcerative colitis flare-up Hyperlacticacidemia Eventration with no incarceration Crohn's disease/ulcerative colitis status post colectomy Severe malnutrition (albumin 1.4) Severe hepatic steatosis Noncompliance Normocytic anemia Homelessness Plan : Continue IV antibiotics Surgery concern for complicated procedure, we will require higher level of care for advanced surgery and including plastics no ivf nicotine patch continue diet start [facility] transfer request - social consulted florastor antiemetics prn tele full code Plan discussed with: Patient My Orders Orders - JOSE DAVID FERNANDEZ MD Procedure Category Date Status Time Linezolid Tablet PHA 06/17/25 Logged (Zyvox Tablet) 22:00 Date of Service: Jun 17, 2025 Billing Provider: JOSE DAVID FERNANDEZ MD Common Visit Codes: [id number] INP/OBS CARE(HIGH) JOSE DAVID FERNANDEZ MD Jun 17, 2025 13:53
[2025-06-17] MEDS: LINEZOLID 600MG TABLET PO SCH (21:35)
[2025-06-18] VITALS (8 sets, daily range): BP systolic 90–105; BP diastolic 47–69; PULSE 92–111; RESP 16–19; TEMP 97.1–97.8; O2SAT 97–100
[2025-06-18 07:52] LABS: Hemoglobin 9.2 g/dL (12.2-16.2); Nucleated Red Blood Cells % 0.1 %
[2025-06-18 07:55] LABS: Hematocrit 28.1 % (36.0-46.0); Mean Corpuscular Hemoglobin 37.0 pg (28.0-32.0); Mean Corpuscular Volume 113.6 fL (80.0-100.0)
[2025-06-18 08:05] LABS: Alanine Aminotransferase 21 U/L (7-40); Anion Gap 8 (5-15); BUN/Creatinine Ratio 8.3 (10.0-20.0); Carbon Dioxide 20 mmol/L (20-31); Glucose 80 mg/dL (74-106); Potassium 4.2 mmol/L (3.5-5.1); Sodium 137 mmol/L (136-145)
[2025-06-18 08:07] LABS: Bilirubin, Total 0.4 mg/dL (0.2-1.0)
[2025-06-18 08:08] LABS: Albumin 1.3 g/dL (3.2-4.8); Alkaline Phosphatase 123 U/L (46-116); Blood Urea Nitrogen 5 mg/dL (9-23); Calcium 7.3 mg/dL (8.7-10.4); Chloride 109 mmol/L (98-107); Total Protein 4.4 g/dL (5.7-8.2)
--- NOTE | 2025-06-18 10:15 | DVHPN2 ---
Progress Note Date Seen: Jun 18, 2025 Resident Creating Document: MASOOD MARTINES RESIDENT Medical Necessity Reason Pt with a Central, PICC or Fol: No Subjective Review of Systems Patient seen and examined at bedside Denies any abdominal pain Ileostomy output continues to solidify, yellow in color Patient notes having emptied the colostomy once in the past 12 hours Objective vital signs Vital Sign Date Time Temp Pulse Resp B/P (MAP) Pulse Ox O2 Delivery O2 Flow Rate FiO2 06/18/25 08:11 97.5 108 18 90/56 (67) 98 97.5 06/17/25 20:00 Room Air* 0 21 Total Intake and Output 06/17/25 06/17/25 06/18/25 15:00 23:00 07:00 Intake Total 650 ml 450 ml Output Total 300 ml 480 ml Balance 350 ml -30 ml medications Current Medications Medications Dose Ordered Sig/Ruben Route Start Time Stop Time Status Last Admin Dose Admin Enoxaparin Sodium 40 mg DAILY SC 06/10/25 10:00 Nicotine 1 patch DAILY TD 06/11/25 10:00 06/18/25 08:55 1 PATCH Enteral Nutritional Formula 28.8 gm BIDWM PO 06/11/25 18:00 06/17/25 09:24 28.8 GM Enteral Nutritional Formula 240 ml TIDWM PO 06/11/25 18:00 06/15/25 17:35 240 ML Pantoprazole Sodium 40 mg DAILY IV 06/15/25 10:00 06/18/25 08:53 40 MG Prochlorperazine Edisylate 10 mg Q6HP PRN IV 06/15/25 11:00 06/18/25 06:14 10 MG Saccharomyces Boulardii 250 mg BID PO 06/15/25 22:00 06/18/25 08:57 250 MG Acetaminophen/ Hydrocodone Bitart 1 tab Q4HPRN PRN PO 06/15/25 13:30 06/18/25 06:11 1 TAB Morphine Sulfate 1 mg Q4HPRN PRN IV 06/15/25 14:15 06/17/25 11:14 1 MG Cefepime HCl 50 ml @ 12.5 mls/hr Q8HR IV 06/16/25 14:00 06/18/25 06:05 12.5 MLS/HR Linezolid 600 mg BID PO 06/17/25 22:00 06/18/25 09:17 600 MG Examination General Appearance: Cooperative. Well developed. Well nourished. NAD Pulmonary/Respiratory: Equal bilateral air entry Cardiovascular/Chest: Regular rate and rhythm. No murmurs. No JVD. Abdominal Exam: Normal bowel sounds. Soft. Ileostomy noted with minimal stomal hernia, brownish minimal output in the ileostomy bag noted., no visible veins Neuro/Mental Status: A&O x4. Coherent. Thoughts/Psych: Normal thought pattern. Appropriate mood and affect. Good judgement and insight Skin Exam: Left gluteal area with redness, multiple small sinuses draining active pus, tenderness to palpation. Right buttock with erythema and active pus drainage 20 x 18 cm in 12 x 12 cm. laboratory and microbiology Laboratory Tests 06/18/25 06:59 Test 06/18/25 06:59 Range/Units Serum Glucose 80 74-106 mg/dL Microbiology Date/Time Source Procedure Growth Status 06/16/25 19:15 Blood Blood Culture - Preliminary NO GROWTH AFTER 24 HOURS OF INCUBATION. Resulted 06/10/25 03:00 Sacrum Gram Stain - Final Complete 06/10/25 03:00 Wound Culture - Final Klebsiella pneumoniae Chryseom Luteola/Flavim Oryzi Complete 06/09/25 09:20 Voided Urine Urine Culture - Final Complete Labs and/or images reviewed: Labs reviewed by me, Image(s) reviewed by me Problem List/Assessment/Plan Problem List/Assessment/Plan Carbuncle and furuncle of buttocks Cellulitis of left buttock Decubitus ulcer S/p skin grafting of the gluteal area in the past Sepsis due to above Possible fistulous tracts draining purulent material History of ulcerative colitis and/or Crohn's disease: IBD-mixed type? Right adrenal gland nodule Plan: - continue IV antibiotics - given patient's history of Crohn's disease and extensive involvement with prior failed biologic trial, recommend transfer to [facility] - awaiting transfer to higher level of care for surgical management, however [facility] did not accept transfer: Repeat surgical evaluation - can consider Gastrografin small-bowel series to rule out enterocutaneous fistula - there does not appear to be an indication for steroids or biologics at this time - patient has previously tried Humira, Remicade, Cimzia with initial improvement in later development of antibodies Thank you so much for the opportunity to consult on your patient. GI team will follow the patient. In case of any questions or concerns please feel free to reach out. Plan discussed with Dr. Whitehead Plan discussed with: Patient, Other (RN) Dietary Evaluation Review Comments: PO supplementation Ensure High Protein TID Issac BID for wound healing TPN clinimix discuss with Dr. Caba regarding these orders Expected Outcomes/Goals: gradually healed wound, gradual wt loss MASOOD MARTINES RESIDENT Jun 18, 2025 10:15
--- NOTE | 2025-06-18 12:46 | DVHDS2 ---
Discharge Summary Date of Admission Jun 10, 2025 at 02:28 Date of Discharge: Jun 18, 2025 Labs/Diagnostic Data: Laboratory Results Test 06/18/25 06:59 06/17/25 06:55 06/15/25 14:11 06/10/25 04:09 White Blood Count 9.5 10^3/uL (4.4-10.8) Red Blood Count 2.47 10^6/uL (4.0-5.20) Hemoglobin 9.2 g/dL (12.2-16.2) Hematocrit 28.1 % (36.0-46.0) Mean Corpuscular Volume 113.6 fL (80.0-100.0) Mean Corpuscular Hemoglobin 37.0 pg (28.0-32.0) Mean Corpuscular Hemoglobin Concent 32.6 g/dL (32.0-36.0) Red Cell Distribution Width 17.5 % (11.8-14.3) Platelet Count 232 10^3/uL (140-450) Mean Platelet Volume 7.8 fL (6.9-10.8) Neutrophils (%) (Auto) 74.5 % (37.0-80.0) Lymphocytes (%) (Auto) 17.2 % (10.0-50.0) Monocytes (%) (Auto) 7.3 % (0.0-12.0) Eosinophils (%) (Auto) 0.5 % (0.0-7.0) Basophils (%) (Auto) 0.5 % (0.0-2.0) Neutrophils # (Auto) 7.1 10 ^3/uL (1.6-8.6) Lymphocytes # (Auto) 1.6 10 ^3/uL (0.4-5.4) Monocytes # (Auto) 0.7 10 ^3/uL (0-1.3) Eosinophils # (Auto) 0.1 10 ^3/uL (0-0.8) Basophils # (Auto) 0 10 ^3/uL (0-0.2) Nucleated Red Blood Cells 0.1 % Sodium Level 137 mmol/L (136-145) Potassium Level 4.2 mmol/L (3.5-5.1) Chloride Level 109 mmol/L (98-107) Carbon Dioxide Level 20 mmol/L (20-31) Anion Gap 8 (5-15) Blood Urea Nitrogen 5 mg/dL (9-23) Creatinine 0.60 mg/dL (0.550-1.02) Glomerular Filtration Rate Calc 108 mL/min (>90) BUN/Creatinine Ratio 8.3 (10.0-20.0) Serum Glucose 80 mg/dL (74-106) Calcium Level 7.3 mg/dL (8.7-10.4) Total Bilirubin 0.4 mg/dL (0.2-1.0) Aspartate Amino Transferase (AST) 24 U/L (13-40) Alanine Aminotransferase (ALT) 21 U/L (7-40) Alkaline Phosphatase 123 U/L (46-116) Total Protein 4.4 g/dL (5.7-8.2) Albumin 1.3 g/dL (3.2-4.8) Folic Acid 2.86 ng/mL (>5.38) Saccharomyces cerevisiae IgG Ab 26.4 Units (0.0-24.9) Saccharomyces cerevisiae IgA Ab 84.3 Units (0.0-24.9) Lactic Acid Level 1.9 mmol/L (0.4-2.0) Phosphorus Level 2.4 mg/dL (2.4-5.1) Magnesium Level 1.7 mg/dL (1.6-2.6) B-Type Natriuretic Peptide 55.05 pg/mL (0-100) Triglycerides Level 118 mg/dL (< 150) Cholesterol Level < 50.0 mg/dL (< 200) LDL Cholesterol 19 mg/dL (< 100) HDL Cholesterol < 5 mg/dL (40-59) Test 06/09/25 21:17 06/09/25 09:30 06/09/25 09:20 Prothrombin Time 16.5 sec (9.3-11.8) Prothrombin Time INR 1.63 (0.9-1.15) Activated Partial Thromboplast Time 39.5 SEC (24.5-34.5) Hemoglobin A1c 4.0 % A1C (<5.7) Lipase 15 U/L (12-53) Vitamin B12 Level 1723 pg/mL (211-911) Vitamin D 25-Hydroxy 40.1 ng/mL (30.0-100) Thyroid Stimulating Hormone (TSH) 8.35 uIU/mL (0.55-4.78) Urine Opiates Screen Neg (NEGATIVE) Urine Fentanyl Screen Neg (NEGATIVE) Urine Barbiturates Screen Neg (NEGATIVE) Urine Phencyclidine Screen Neg (NEGATIVE) Urine Amphetamines Screen Neg (NEGATIVE) Urine Benzodiazepines Screen Neg (NEGATIVE) Urine Cocaine Screen Neg (NEGATIVE) Urine Cannabinoids Screen Neg (NEGATIVE) Urine Color Dark yellow (Yellow) Urine Clarity Ex.turbid (Clear) Urine pH 6.0 (5.0-9.0) Urine Specific [place] 1.050 (1.001-1.035) Urine Protein 1+ (Negative) Urine Ketones Negative (Negative) Urine Blood 3+ /uL (Negative) Urine Nitrite Negative (Negative) Urine Bilirubin Negative (Negative) Urine Urobilinogen Normal mg/dL (Negative) Urine Leukocyte Esterase 3+ /uL (Negative) Urine RBC 91 /hpf (0 - 4) Urine WBC Clumps Present /hpf (None Seen) Urine Microscopic WBC 1816 /HPF (0-5) Urine Squamous Epithelial Cells None seen /hpf (<5) Urine Bacteria None seen /hpf (None Seen) Urine Glucose Normal mg/dL (Normal) Other Laboratory Tests 06/18/25 06:59 Brief Hx & Hospital Course: 50-year-old female patient who presents to ED due to progressive generalized weakness, diffuse abdominal pain, and worsening lower back wound which has been occurring for the previous month before her admission patient also reports decreased food intake with an unintentional weight loss of 120 lb since December 2024. She also complains of abdominal mass pain next to her colostomy bag. Patient has history of Crohn's disease and ulcerative colitis complicated with enterocutaneous fistulas. Patient denies any other associated symptoms, including fever, chills, nausea, vomiting and increased output of colostomy bag. Past medical history: Crohn's disease/ulcerative colitis complicated with enterocutaneous fistulas status post multiple surgeries (colectomy, fistulectomy, wound debridement and finally colostomy bag), per patient she has not had any follow up for the past seven years and is off all Crohn's disease and ulcerative colitis medication (previously she was on Humira and multiple other biological treatments), umbilical hernia, nonhealing lower back wound. Benign ovarian mass status post unilateral salpingo-oophorectomy. 06/14: Reapplied today for transfer to plastics, [facility] decision pending. Surgery following. Continue IV antibiotics. Patient has epigastric pain we will start IV ppi, KUB upright as patient complains of worsening distention. Continue to evaluate. CT with contrast/oral/colostomy contrast, showing extensive fistula ascending from left gluteal region to the gluteal cleft, to the bones. 06/15: Patient is having diarrhea. We will switch antibiotics to ceftriaxone Flagyl. Change Zofran to Compazine. We will give 500 cc LR bolus for diarrhea., continue slow maintenance fluids 75 cc hour continuous maximum L,. Start Florastor b.i.d.. GI does not think this is Crohn's flare or need for any biologics or steroids this point. Continue sending information to [facility] to transfer for advance care surgery facility which could include Plastic surgery. 06/17: Patient denied but [facility], yesterday plan to treat patient empirically with further IV antibiotics as patient is improving. However another surgical reconsult order placed. Pending surgery eval . Otherwise patient we will do 2 weeks cefepime at SNF + also get PT rehab and wound care. We will allow surgery to see patient today, otherwise likely discharge tomorrow to SNF. 06/18: Patient has significant disease burden from Crohn's and recurrent infections in gluteal areas. She has Arango which he had can not remove given the infection, we will have to be removed at SNF facility. Patient is mostly bed-bound due to his and pain in buttocks. Patient will need to continue IV antibiotics cefepime 2 weeks at SNF. Continue PT rehab SNF. And get wound care. Patient has been denied for plastic surgery multiple times multiple locations. We will have to follow up with Plastic surgery outpatient. Patient is homeless significant disease, this is very poor prognosis. Patient's closest family is in [place] and they are also living in trail with no room for patient. Patient has no support system. Poor prognosis. Vital signs stable, we will discharge to SNF as per plan below. Diagnosis: Sepsis secondary to nonhealing extensive gluteal wound Extensive gluteal wound secondary to enterocutaneous fistulas Cellulitis of gluteal region Multiple abscesses in gluteal region Questionable Crohn's disease/ulcerative colitis flare-up Hyperlacticacidemia Eventration with no incarceration Crohn's disease/ulcerative colitis status post colectomy Severe malnutrition (albumin 1.4) Severe hepatic steatosis Noncompliance Normocytic anemia Homelessness plan: -2 weeks cefepime 1g q8h. at SNF via midline. Remove midline after completion of antibiotics. - PT rehab at snf and wound care. - Issac b.i.d., ensure high-protein t.i.d. with meals -Remove Arango in SNF once patient is able to get out of bed for bedside commode. -Continue other home medications -Follow up with PCP to review discharge Condition at Discharge: Fair Final Diagnosis/Problems List Sepsis secondary to nonhealing extensive gluteal wound Extensive gluteal wound secondary to enterocutaneous fistulas Cellulitis of gluteal region Multiple abscesses in gluteal region Questionable Crohn's disease/ulcerative colitis flare-up Hyperlacticacidemia Eventration with no incarceration Crohn's disease/ulcerative colitis status post colectomy Severe malnutrition (albumin 1.4) Severe hepatic steatosis Noncompliance Normocytic anemia Homelessness Discharge Disposition: Home Discharge Instruct/Medications No Active Prescriptions or Reported Meds Discharge Statement: "Patient was advised to return to the ER or call 911 if any headaches, dizziness, shortness of breath, chest pain, abdominal pain, bleeding, fevers, or worsening of medical condition. Patient was counseled about treatment plan, medications, possible side effects, patientverbalized understanding. All questions were answered to the best of my ability. This discharge took greater then 30 minutes in planning, reviewing documentation, counseling the patient, and discussing with other team members." ASSESSMENT ASSESSMENT Assessment Date of Service: Jun 18, 2025 Billing Provider: JOSE DAVID FERNANDEZ MD Common Visit Codes: 51372-TXA/OBS DISCH DAY >30min JOSE DAVID FERNANDEZ MD Jun 18, 2025 12:45
[2025-06-19 01:00] VITALS: BP 105/71; PULSE 85; RESP 18; TEMP 97.9; O2SAT 98
[2025-06-19 05:00] VITALS: BP 113/75; PULSE 97; RESP 18; TEMP 97.3; O2SAT 97
[2025-06-19 08:00] VITALS: PULSE 105; RESP 18
[2025-06-19 08:43] VITALS: BP 113/78; PULSE 108; RESP 18; TEMP 97.6; O2SAT 97
[2025-06-19 12:50] VITALS: BP 99/74; PULSE 62; RESP 18; TEMP 97.7; O2SAT 98
--- NOTE | 2025-06-19 13:39 | DVHPN2 ---
Subjective Denies any symptoms Reviewed: H&P Changes from previous H/P or p: No Changes General: Per HPI Objective Vitals Vital Signs Date Time Temp Pulse Resp B/P (MAP) Pulse Ox O2 Delivery O2 Flow Rate FiO2 06/19/25 12:50 97.7 62 18 99/74 (82) 98 97.7 06/19/25 08:00 Room Air* 0 21 Intake/Output Intake and Output 06/19/25 07:00 Intake Total 1350 ml Output Total 570 ml Balance 780 ml Intake Oral 1300 ml IV Total 50 ml Output Urine Total 570 ml General Appearance: Alert, Oriented X3, Cooperative, No acute distress HEENT: Atraumatic, PERRLA Lungs: Clear to auscultation, Normal air movement Cardiovascular: Normal S1, Normal S2 Abdomen: Normal bowel sounds, Soft, No tenderness, Other (Colostomy) Musculoskeletal: Normal sensory function, Normal motor function Skin: Dry, Intact Psych/Mental Status: Mental status NL, Mood NL Medications Current Medications Medications Dose Ordered Sig/Ruben Route Start Time Stop Time Status Last Admin Dose Admin Enoxaparin Sodium 40 mg DAILY SC 06/10/25 10:00 06/19/25 09:27 40 MG Nicotine 1 patch DAILY TD 06/11/25 10:00 06/19/25 11:36 1 PATCH Enteral Nutritional Formula 28.8 gm BIDWM PO 06/11/25 18:00 06/17/25 09:24 28.8 GM Enteral Nutritional Formula 240 ml TIDWM PO 06/11/25 18:00 06/19/25 09:27 240 ML Pantoprazole Sodium 40 mg DAILY IV 06/15/25 10:00 06/19/25 09:27 40 MG Prochlorperazine Edisylate 10 mg Q6HP PRN IV 06/15/25 11:00 06/18/25 20:05 10 MG Saccharomyces Boulardii 250 mg BID PO 06/15/25 22:00 06/19/25 09:27 250 MG Acetaminophen/ Hydrocodone Bitart 1 tab Q4HPRN PRN PO 06/15/25 13:30 06/18/25 20:05 1 TAB Morphine Sulfate 1 mg Q4HPRN PRN IV 06/15/25 14:15 06/19/25 09:26 1 MG Cefepime HCl 50 ml @ 12.5 mls/hr Q8HR IV 06/16/25 14:00 06/19/25 05:36 12.5 MLS/HR Linezolid 600 mg BID PO 06/17/25 22:00 06/19/25 09:25 600 MG Laboratory Results Laboratory Tests 06/18/25 06:59 Urinalysis Test 06/09/25 09:20 Urine Color Dark yellow (Yellow) Urine Clarity Ex.turbid (Clear) Urine pH 6.0 (5.0-9.0) Urine Specific [place] 1.050 (1.001-1.035) Urine Protein 1+ (Negative) H Urine Ketones Negative (Negative) Urine Blood 3+ /uL (Negative) H Urine Nitrite Negative (Negative) Urine Bilirubin Negative (Negative) Urine Urobilinogen Normal mg/dL (Negative) Urine Leukocyte Esterase 3+ /uL (Negative) Urine RBC 91 /hpf (0 - 4) Urine WBC Clumps Present /hpf (None Seen) Urine Microscopic WBC 1816 /HPF (0-5) H Urine Squamous Epithelial Cells None seen /hpf (<5) Urine Bacteria None seen /hpf (None Seen) Urine Glucose Normal mg/dL (Normal) Microbiology Microbiology Date/Time Source Procedure Growth Status 06/16/25 19:15 Blood Blood Culture - Preliminary NO GROWTH AFTER 48 HOURS OF INCUBATION. Resulted 06/10/25 03:00 Sacrum Gram Stain - Final Complete 06/10/25 03:00 Wound Culture - Final Klebsiella pneumoniae Chryseom Luteola/Flavim Oryzi Complete 06/09/25 09:20 Voided Urine Urine Culture - Final Complete Labs and/or images reviewed: Labs reviewed by me, Image(s) reviewed by me Assessment/Plan Assessment/Plan Impression: -Sepsis secondary to nonhealing extensive gluteal wound -Extensive gluteal wound secondary to enterocutaneous fistulas -Cellulitis of gluteal region -Multiple abscesses in gluteal region -Questionable Crohn's disease/ulcerative colitis flare-up -Hyperlacticacidemia -Eventration with no incarceration -Crohn's disease/ulcerative colitis status post colectomy -Severe malnutrition (albumin 1.4) -Severe hepatic steatosis -Noncompliance -Normocytic anemia -Homelessness Plan: -continue IV antibiotic therapy with cefepime -PUD, DVT prophylaxis -continue established transfer to correction facility Total time spent with patient discussing and formulating plan of care: 35 minutes. This medical document was created using an electronic medical record system with [employer] computerized dictation system. Although this document has been carefully reviewed, there may still be some phonetic and typographical errors. These areas are purely typographical due to imperfections of the software programs, and do not reflect any compromise in the patient's medical care. Plan discussed with: Patient, Other (RN) Date of Service: Jun 19, 2025 Billing Provider: ELICEO FLORES NP Common Visit Codes: [id number] INP/OBS CARE(HIGH) ELICEO FLORES NP Jun 19, 2025 13:39
[2025-06-19 13:46] VITALS: BP 99/74; PULSE 62; RESP 18; TEMP 36.5; O2SAT 98
== END 2025-06-19 15:39 | DRG 813 ==
LOC: ER 20:41 → EDBD 20:41 → OVERFLOW 06-10 02:28 → TELE-WESTW 06-10 04:40
PROVIDERS: ADMIT Student in an Organized Health Care Education/Training Program; ATTEND Student in an Organized Health Care Education/Training Program
PROC: 05HC33Z Insertion of Infusion Device into Left Basilic Vein, Percutaneous Approach (ICD-10-PCS; principal; 2025-06-16)
PROC: B54NZZA Ultrasonography of Left Upper Extremity Veins, Guidance (ICD-10-PCS; 2025-06-16)
DX: T81.89XA Other complications of procedures, not elsewhere classified, initial encounter (principal); A41.9 Sepsis, unspecified organism; E43 Unspecified severe protein-calorie malnutrition; L89.323 Pressure ulcer of left buttock, stage 3; L02.31 Cutaneous abscess of buttock; L03.317 Cellulitis of buttock; K51.90 Ulcerative colitis, unspecified, without complications; K76.0 Fatty (change of) liver, not elsewhere classified; D64.9 Anemia, unspecified; L02.32 Furuncle of buttock; L02.33 Carbuncle of buttock; Y83.8 Other surgical procedures as the cause of abnormal reaction of the patient, or of later complication, without mention of misadventure at the time of the procedure; K43.9 Ventral hernia without obstruction or gangrene; Z68.33 Body mass index [BMI] 33.0-33.9, adult; Z90.49 Acquired absence of other specified parts of digestive tract; Z80.3 Family history of malignant neoplasm of breast; Z88.6 Allergy status to analgesic agent; Z88.1 Allergy status to other antibiotic agents; Z91.018 Allergy to other foods; Z93.3 Colostomy status; Z91.199 Patient's noncompliance with other medical treatment and regimen due to unspecified reason; Z59.00 Homelessness unspecified; Y92.89 Other specified places as the place of occurrence of the external cause
CPT/HCPCS: 36415; 74018; 74177; 80048; 80053; 80061; 80307; 81001; 82306; 82565; 82607; 82746; 83036; 83605; 83690; 83735; 83880; 84100; 84443; 85025; 85610; 85730; 86256; 86671; 87040; 87077; 87081; 87086; 87186; 87205; 93971; 96365; 96367; 97110; 97163; G0378; J0692; J1885; J2405; J2470; J2543; J3490